=== PATIENT | female | born 1985 | race Caucasian/White ===

== ENCOUNTER → 2022-05-18 | Outpatient (CLI) | payer MEDICAID, SELFPAY ==
[2022-05-18 16:23] LABS: Absolute Neutrophil Count 3.6 X10^3/uL (2.0-7.7); Basophil# 0.02 X10^3/uL; Basophil% 0.3 % (0-1); Eosinophil# 0.29 X10^3/uL; Eosinophils% 4.6 % (0-5); Hematocrit 40.4 % (37-47); Hemoglobin 13.2 g/dL (12.0-15.0); Lymphocyte % 26.9 % (19-41); Mean Corp Hgb Conc 32.7 g/dL (32-36); Mean Corpuscular Hgb 32.1 pg (27.0-32.0); Mean Corpuscular Volume 98.3 fL (81-99); Mean Platelet Vol. 10.7 fl (6.2-12.0); Monocyte% 11.1 % (0-10); NRBC Flagged by Analyzer 0 % (0-5); Neutrophil % 56.8 % (47-70); Platelet Count 283 K/mm3 (150-450); RBC Distribution Width CV 11.9 % (11.6-14.6); RBC Distribution Width SD 43.5 fl (35.1-43.9); Red Blood Count 4.11 M/mm3 (4.2-5.4); White Blood Count 6.3 K/mm3 (4.4-11.0)
[2022-05-18 16:37] LABS: ALB/GLOB Ratio 1.1 RATIO (0.9-2.4); AST(SGOT) 15 U/L (15-37); Alanine Aminotransfer ALT/SGPT 24 U/L (13-56); Albumin, Serum 3.9 g/dL (3.2-5.0); Alkaline Phosphatase 45 U/L (45-117); Anion Gap 6 (5-15); BUN 16 mg/dL (7-18); BUN/Creat Ratio 17.8 RATIO (10-20); Calcium,Total 9.6 mg/dL (8.5-10.1); Chloride 103 mmol/L (98-107); Cholesterol 183 mg/dL (200); EST Glomerular Filtration Rate 75 mL/min (>60); Est Glom Filt Rate - Afr Amer 90 mL/min (>60); Globulin 3.6 g/dL (2.2-4.2); Glucose 147 mg/dL (74-106); High Density Lipoprotein 49 mg/dL; Potassium 4.2 mmol/L (3.5-5.1); Protein, Total 7.5 g/dL (6.4-8.2); Sodium Level 139 mmol/L (136-145); Triglycerides 82 mg/dL; Very Low Density Lipoprotein 16 mg/dL (5-40)
[2022-05-22 08:59] LABS: Hemoglobin A1c 5.4 % (3.8-5.6)
== END | disposition home or self-care (01) ==
LOC: BIMLAB 15:16
PROVIDERS: PCP Internal Medicine; Referring Provider Internal Medicine; Visit Provider Internal Medicine
DX: I10 Essential (primary) hypertension (principal); R73.09 Other abnormal glucose
CPT/HCPCS: 36415; 80053; 80061; 83036; 85025

== ENCOUNTER 2023-01-02 14:00 | Outpatient (RCR) | payer MEDICAID, SELFPAY ==
--- NOTE | 2022-12-05 13:44 | HP.PTEVAL_ITS ---
Patient's Visit Information DARLENE HELMS I is a 37 year old F referred to Physical Therapy by JOVITA SYKES with a diagnosis of TOS. Date of Evaluation: 12/05/22 Physical Therapist: Major Saavedra, DPT, OCS, CSCS - Visit Plan Frequency: 2x /Week Duration: 4-6 Weeks Plan: 2x/week for 4-6 weeks to start for... 1. monitor and progress one at a time HEP(given median nerve stretch today) and montior cause and effect relationship. Progress to UT and scalene stretch R, Pec stretching R, SCM stretches over next three visits. 2. Please focus treatment on DTR adn STM to R upper quarter specifically R SCM, pec minor, scalenes, and UT area). 3. cervical and thoracic spinal PA mobs. 4. PROM neck m,anual. Postural emphasis. 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 Pain is spasms in R traps and scalenes and lev scap and occipital region. had it 14 yrs and not sure why but has a 13 yo. it is not always daily. Might have a spasm a day and take alleve. but other days 8/10 multiple times per day. Does nto see a pattern to it over the 14 yrs. it is worse on day one of menstrual cycle. Possibly due to inflammation. Posture effects it because she sees small improvements when she is very consci ous of posture. Has to lie down on floor with bad spasms and try to give it some pressure. Sleep is interrupted in that it wakes her up at night if it happens in pm, currently wakes up every two hours since last weekend. Some nights are OK all night. 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 No regular exercises. Had surgery December 01, 2021 pec minor release and TOS adn first rib removal. it helped for 6 weeks after surgery. Came back mild. Since July it has been far worse. May have scalenectomy but wants PT first. May have scalene block. They have taken away her pain in past. Denies arm symptoms ever. Has not had therapy for TOS syndrome. Has had neck therapy but never [id number] discs) - Pain R neck Pain Intensity (Out of 10): 2 Pain Intensity Range: 0, 8 - Objective walks into therapy I without gait deviations. [facility] table I. Good balance. Lumbar spine ROM is full and painfree. Thoracic rotation is symmetrical B. cervical aROM ext 75 and SB are 25 adn rotation is 65 R and 80 L, some stretching ipsilaterally with R rotation. UE AROM WFL B without asymmetries. Strength B UE 4-/5 without myotomal abnormalities. reflex 2/3 patella adn achilles. Sensation UE WNL to gross light touch. Scapular AROM diminished R side in depression with retraction. Tender slightly over pec incision R and armpit incision R from previous surgery but no obvious palpable scarring. Tightness present in R SCM, lev scap, scalenes and pec minor. Obvious stringy scarring scalenes and SCM R side palpable vs L. Nerves UE seem patent outside of median nerve stretch which is obviously more tight R vs L. - c/s compression test. Posture is slightly forward head and slight protraction in scap but not terrible. - Balance/Special Test Scores Oswestry Neck Score: 20 - Goals Goal 1:: Patient sapsms decrease to 1-2x/week adn 2/10 at worst Goal Time Frame: 4-6 Weeks Goal 2:: Pt I in appropriate HEP of stretches and soft tissue to minimze future problem Goal Time Frame: 4-6 Weeks Goal 3:: Oswestry neck 8 or less Goal Time Frame: 4-6 Weeks Goal 4:: Sleep without waking at night due to pain Goal Time Frame: 4-6 Weeks - Rehabilitation Potential Physical Therapy Diagnosis: possible TOS with scalene involvement Rehabilitation Potential: Questionable - Anticipated Interventions Patient/Client Instruction: Educate patient on: Condition, Plan of Care For the Purpose of:: To decrease pain, To increase ROM, To improve muscle performance and motor function, To increase tolerance to activity/condition/position, To improve ability of physical actions for home/community/work/leisure Therapeutic Exercise to Include: Postural training, Flexibilty training, Passive ROM, Active ROM For the Purpose of:: To decrease pain, To increase ROM, To improve nutrient delivery to tissue, To improve muscle performance and motor function, To increase tolerance to activity/condition/position Manual Therapy Techniques to Include: Scar massage, Mobilization, Soft tissue mobilization For the Purpose of:: To decrease pain, To increase ROM, To improve nutrient delivery to tissue, To improve muscle performance and motor function, To increase tolerance to activity/condition/position Thermo therapy (hot pack): Yes For the Purpose of:: To decrease pain, To decrease swelling/inflammation Thank you for the opportunity to evaluate your patient. For Medicare and Medicare HMO plans, please review the plan of care and approve it. It will need to be FAXED BACK to us at [phone] for Medicare purposes. For Medicare only, by signing this I certify the plan of care. Please let me know if there are questions or concerns regarding this plan of care. Physician Signature: Date:
--- NOTE | 2023-01-02 14:57 | HP.PTREVAL ---
JOVITA SYKES, It has been my pleasure to treat DARLENE HELMS over the last 9 visits for TOS. Please see the progress note below for an update on the physical therapy plan of care! Subjective: Pain is up and down for no apparent reason. Pain is still up to 9/10 in r neck and scalenes.Had one week of improvement but pain came back for no apparent reason. Doing 4 different stretches daily at home and not helping or hurting, they feel good but do not help frequency of spasms, may help when she gets them. Had consultation for injection of scalenes. Injection will be February 07 but insurance had not improve it. Will seek steroids from Dr. sykes. Had catscan to see what anatomy is in the way. No results yet. Objective/Function: Neck ROM ext 50 but painful centrally, hurts more with retraction first but transient.. UE AROM WFL. rod mill tender R scalenes. Overall sapsms not improving and wishes to try dry needling. To this therapist, disc derangement cannot be ruled out. Goals still appropriate with new POC. Questionable prognosis with her history. Plan Plan: 1-2x/week with Lit for DN as appropriate to r neck/scalenes, this along with caontinued manual to R neck . ALSO please monitor response to cervical ret/ext andreea exercises for discal pathology and progression of forces as appropriate(may use PA cervical mobs and retracction adn extension with OP as helpful. Balance/Gait/Functional tests - Balance/Special Test Scores Oswestry Neck Score: 31 Goals Goal 1:: Patient sapsms decrease to 1-2x/week adn 2/10 at worst Goal Time Frame: 4-6 Weeks Goal Progress: Not Progressing, approp Goal 2:: Pt I in appropriate HEP of stretches and soft tissue to minimze future problem Goal Time Frame: 4-6 Weeks Goal Progress: Progressing Goal 3:: Oswestry neck 8 or less Goal Time Frame: 4-6 Weeks Goal Progress: Progressing Goal 4:: Sleep without waking at night due to pain Goal Time Frame: 4-6 Weeks Goal Progress: Not Progressing, approp Anticipated Interventions Patient/Client Instruction: Educate patient on: Condition, Plan of Care For the Purpose of:: To decrease pain, To increase ROM, To improve muscle performance and motor function, To increase tolerance to activity/condition/position, To improve ability of physical actions for home/community/work/leisure Therapeutic Exercise to Include: Postural training, Flexibilty training, Passive ROM, Active ROM Comment: dry needle For the Purpose of:: To decrease pain, To increase ROM, To improve nutrient delivery to tissue, To improve muscle performance and motor function, To increase tolerance to activity/condition/position Manual Therapy Techniques to Include: Scar massage, Mobilization, Soft tissue mobilization For the Purpose of:: To decrease pain, To increase ROM, To improve nutrient delivery to tissue, To improve muscle performance and motor function, To increase tolerance to activity/condition/position Thermo therapy (hot pack): Yes For the Purpose of:: To decrease pain, To decrease swelling/inflammation Please do not hesitate to contact me at [phone] by phone or if you have questions or concerns regarding this new plan of care! Sincerely, Major Saavedra, DPT, OCS, CSCS
--- NOTE | 2023-02-22 14:16 | HP.PT.NRP ---
Patient Information Patient Information: DARLENE HELMS was seen in my office for initial evaluation on 12/05/22. The following Plan of Care was established for this patient: POC Established Initial Frequency: 2x /Week Initial Duration: 4-6 Weeks Anticipated Interventions Patient/Client Instruction: Educate patient on: Condition and Plan of Care For the Purpose of:: To decrease pain, To increase ROM, To improve muscle performance and motor function, To increase tolerance to activity/condition/position and To improve ability of physical actions for home/community/work/leisure Therapeutic Exercise to Include: Postural training, Flexibilty training, Passive ROM and Active ROM For the Purpose of:: To decrease pain, To increase ROM, To improve nutrient delivery to tissue, To improve muscle performance and motor function and To increase tolerance to activity/condition/position Manual Therapy Techniques to Include: Scar massage, Mobilization and Soft tissue mobilization For the Purpose of:: To decrease pain, To increase ROM, To improve nutrient delivery to tissue, To improve muscle performance and motor function and To increase tolerance to activity/condition/position Thermo therapy (hot pack): Yes For the Purpose of:: To decrease pain and To decrease swelling/inflammation Last Seen Last Seen: This patient was last seen in our office 01/02/23. Pertinent comments regarding their Physical therapy will appear below: Pt seen 9 visits of POC but was not improving, POC was extended for DN attempt but she did not attend any further visits. At this point, it has been over 6 weeks and I will discontinue due to nonattendance. At this point I will be discontinuing this patient from physical therapy. I would be happy to see this patient again in the future if found appropriate by the physician. Thank you! Major Saavedra, DPT, OCS, CSCS Balance/Gait/Functional tests Balance/Special Test Scores Oswestry Neck Score: 31
== END 2023-01-02 19:00 | disposition home or self-care (01) ==
LOC: PT 14:00
PROVIDERS: PCP Internal Medicine
DX: G54.0 Brachial plexus disorders (principal)
CPT/HCPCS: 97110; 97140; 97162; 97164

== ENCOUNTER → 2023-08-22 | Outpatient (CLI) | payer MEDICAID, SELFPAY ==
--- OUTSIDE RECORDS SUMMARY | 2023-08-22 13:43 | XMS RPT_ITS | CCD ---
Author Name Unknown Address [address] [facility] [address] [place] [address] Organization [facility] Care Team Providers Care Circulation Crew Leader Name Role Phone FRED SALTER MD Primary Care Physician (10 11) Unavailable Primary Care Provider Unavailabl Fred Jon MD Primary Care Provider 1(10 [phone]) Fred Salter MD Primary Care Provider 1(10 11) FRED SALTER MD Primary Care Unavailab LILLIE Naylor MD Attending U SAMANTHA Pinedo DO Attending Unavailab FRED Abebe MD Primary Care Unavailab EDUARDO Hawley DO Attending Unavailable FRED SALTER MD Primary Care Unavailab FRED Abebe MD Primary Care Unavailab LILLIE Naylor MD Attending U REMI Suazo MD Attending Unavailable FRED SALTER MD Primary Care Unavailab le ELIAS GONZALEZ Attending Unavailable COSTANDI, SHRIF Admitting Unavailable OLEGHE, EFEWONGBE B Primary Care Unavailable COSTANDI SHRIF Attending Unavailable STEPHYNDI, SHRIF Admitting Unavailable OLEGHE, EFEWONGBE B Primary Care Unavailable OLEGHE, EFEWONGBE B Primary Care Unavailable OLEGHE, EFEWONGBE B Primary Care Unavailable RAMON SYKES Referring Unavailable RADHAI, SHRIF Referring Unavailable LISA, SHRIF Attending Unavailable RAMON SYKES Attending Unavailable OLEGHE, EFEWONGBE B Primary Care Unavailable BEATRIZ POWERS Referring Unavailable BEATRIZ POWERS Attending Unavailable OLEGHE, EFEWONGBE B Referring Unavailable FRED SALTER Primary Care Unavailable RAMON SYKES Attending Unavailable Allergies Allergy Classification Reported Allergen(s) Allergy Type Date of Onset Reaction(s) Facility (3 sources) cyclobenzaprine; Translations: [CYCLOBENZAPRINE HCL] Drug Allergy 03-14-2007 [place] Work Phone: Medications Current Medications Medication Drug Class(es) Dates Sig (Normalized) Sig (Original) cyclobenzaprine hydrochloride 10 mg oral tablet (11 sources) Muscle Relaxant Start: 06-10-2023 cyclobenzaprine 10 mg oral tablet Dose : 10 mg = 1 tab(s), Oral, 0 Refill(s) Start Date: 06/10/23 Status: Ordered Completed/Discontinued Medications Medication Drug Class(es) Dates Sig (Normalized) Sig (Original) acetaminophen 325 mg oral capsule (9 sources) acetaminophen 32 5 mg cap Take by mouth. 0 Active Problems Active Problems Problem Classification Problem Date Documented Da te Episodic/Chronic Cardiac dysrhythmias (3 sources) Palpitations; Translations: [Palpitations] Onset: 06-09-2023 Episodic Essential hypertension (1 source) Hypertensive disorder 07-01-2023 Chronic Malaise and fatigue (1 source) Fatigue; Translations: [Other fatigue] Episodic Menstrual disorders (11 sources) Irregular periods; Translations: [Irregular menstruation, unspecified] Onset: 08-17-2009 08-17-2009 Chronic Nonspecific chest pain (1 source) Atypical chest pain 07-01-2023 Episodic Nutritional deficiencies (1 source) Vitamin D deficiency; Translations: [Vitamin D deficiency, unspecified] Chronic Other congenital anomalies (11 sources) Spina bifida occulta; Translations: [Spina bifida occulta] Onset: 07-22-2012 07-10-2021 Chronic Other endocrine disorders (1 source) Disorder of endocrine ovary; 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 Other endocrine disorders (11 sources) Polycystic ovary syndrome; Translations: [Polycystic ovarian syndrome] Onset: 08-17-2009 08-17-2009 Chronic Other hereditary and degenerative nervous system conditions (1 source) Isolated cervical dystonia; 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-24-2023 Chronic Other hereditary and degenerative nervous system conditions (1 source) Spasmodic torticollis; 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] Onset: 07-18-2023 Chronic Other lower respiratory disease (2 sources) Dyspnea on exertion 06-11-2023 Episodic Other nervous system disorders (11 sources) Thoracic outlet syndrome; Translations: [Brachial plexus disorders] Onset: 02-07-2023 Chronic Other nervous system disorders (2 sources) Brachial plexus disorders; Translations: [TOS (thoracic outlet syndrome)] Onset: 12-27-2022 Chronic Other nervous system disorders (1 source) Other chronic pain; Translations: [Chronic right shoulder pain] Onset: 02-07-2023 Chronic Other nutritional; endocrine; and metabolic disorders (1 source) Obesity 07-01-2023 Chronic Past or Other Problems Problem Classification Problem Date Documented Da te Episodic/Chronic Allergic reactions (1 source) Allergic reaction Onset: 12-27-2022 Episodic Diabetes or abnormal glucose tolerance complicating ; childbirth; or the puerperium (11 sources) Gestational diabetes mellitus; Translations: [Gestational diabetes mellitus in , unspecified control] Onset: 12-25-2012 12-25-2012 Episodic Other complications of (11 sources) History of gestational diabetes mellitus; Translations: [Supervision of with other poor reproductive or obstetric history, unspecified trimester] Onset: 07-22-2012 07-10-2021 Episodic Other connective tissue disease (5 sources) Myofascial pain; Translations: [Myalgia, other site] Onset: 02-07-2023 01-11-2023 Episodic Other connective tissue disease (1 source) Myalgia, other site; Translations: [Myofascial pain] Onset: 02-07-2023 Episodic Other infections; including parasitic (11 sources) History of sexually transmitted disease; Translations: [Personal history of other infectious and parasitic diseases] Onset: 07-22-2012 07-10-2021 Episodic Other non-traumatic joint disorders (3 sources) Chronic pain of right upper limb; Translations: [Pain in right shoulder] Onset: 02-07-2023 02-07-2023 Episodic Other non-traumatic joint disorders (1 source) Pain in right shoulder; Translations: [Chronic right shoulder pain] Onset: 02-07-2023 Episodic Other and delivery including normal (11 sources) Normal ; Translations: [Encounter for supervision of other normal , unspecified trimester] Onset: 08-11-2012 07-10-2021 Episodic Spondylosis; intervertebral disc disorders; other back problems (4 sources) Neck pain; Translations: [Cervicalgia] Onset: 02-07-2023 02-07-2023 Episodic Results Test Name Value Interpretation Reference Range Facil ity Vital Signs Date Time Vital Sign Value Performing Clinician Facility 06-09-2023 17:17-0500 Diastolic Blood Pressure Non-Invasive 87 mm[Hg] EDUARDO REICHFIELD DO [facility] 06-09-2023 17:17-0500 Heart rate 105 /min EDUARDO REICHFIELD DO [facility] 06-09-2023 17:17-0500 Respiratory rate 20 /min EDUARDO REICHFIELD DO [facility] 06-09-2023 17:17-0500 Systolic Blood Pressure Non-Invasive 126 mm[Hg] EDUARDO REICHFIELD DO [facility] 06-09-2023 16:45-0500 Diastolic Blood Pressure Non-Invasive 87 mm[Hg] EDUARDO REICHFIELD DO [facility] 06-09-2023 16:45-0500 Heart rate 92 /min EDUARDO REICHFIELD DO [facility] 06-09-2023 16:45-0500 Respiratory rate 19 /min EDUARDO REICHFIELD DO [facility] 06-09-2023 16:45-0500 Systolic Blood Pressure Non-Invasive 130 mm[Hg] EDUARDO REICHFIELD DO [facility] 06-09-2023 15:30-0500 Diastolic Blood Pressure Non-Invasive 92 mm[Hg] EDUARDO REICHFIELD DO [facility] 06-09-2023 15:30-0500 Heart rate 92 /min EDUARDO REICHFIELD DO [facility] 06-09-2023 15:30-0500 Respiratory rate 14 /min EDUARDO REICHFIELD DO [facility] 06-09-2023 15:30-0500 Systolic Blood Pressure Non-Invasive 132 mm[Hg] EDUARDO REICHFIELD DO [facility] 06-09-2023 13:47-0500 Body temperature 99.14 [degF] EDUARDO REICHFIELD DO [facility] 06-09-2023 13:47-0500 Body weight 75.4 kg [facility] 02-13-2023 11:38-0400 Diastolic blood pressure 76 mm[Hg] Ramon Sykes MD Work Phone: [facility] 02-13-2023 11:38-0400 Heart rate 80 /min Ramon Sykes MD Work Phone: [facility] 02-13-2023 11:38-0400 Systolic blood pressure 122 mm[Hg] Ramon Sykes MD Work Phone: [facility] 11-14-2022 09:37-0400 Diastolic blood pressure 84 mm[Hg] Ramon Sykes MD Work Phone: [place] 11-14-2022 09:37-0400 Heart rate 83 /min Ramon Sykes MD Work Phone: [place] 11-14-2022 09:37-0400 Systolic blood pressure 126 mm[Hg] Ramon Sykes MD Work Phone: [facility] 11-14-2022 09:35-0400 Body height 157.5 cm Ramon Sykes MD Work Phone: [facility] 11-14-2022 09:35-0400 Body weight 66.22 kg Ramon Sykes MD Work Phone: [facility] 11-14-2022 09:35-0400 Respiratory rate 17 /min Ramon Sykes MD Work Phone: [facility] 11-14-2022 09:35-0400 SaO2% (BldA) [Mass fraction] 99 % Ramon Sykes MD Work Phone: [place] Encounters Encounter Date Encounter Type Care Provider Facility Start: 08-20-2023 Telephone encounter Fred Salter MD Work Phone: NOC Procedures Date Procedure Procedure Detail Performing Clinician Start: 12-27-2022 Creatinine [Mass/vol ume] in Serum or Plasma [facility] Provider Start: 07-15-2021 Bone structure of ri b (body structure) REMI VILLAR MD Plan of Treatment Date Care Activity Detail Author Start: 06-30-2026 Screening for malignant neoplasm of cervix [facility] Start: 07-15-2023 Depression Assessment Depression Assessment [facility] Start: 03-15-2023 Influenza vaccination [facility] Start: 07-15-2022 DEPRESSION ASSESSMENT DEPRESSION ASSESSMENT [facility] Start: 08-11-2017 PAP TESTING PAP TESTING [facility] Start: 2014 HPV TESTING HPV TESTING [facility] Start: 2003 Urine microalbumin profile [facility] Start: 2002 HEPATITIS C SCREENING HEPATITIS C SCREENING [facility] Start: 2002 Hepatitis C screening Hepatitis C Screening [facility] Start: 2002 HIV SCREENING HIV SCREENING [facility] Start: 2002 HIV screening HIV Screening [facility] Start: 01-26-1985 COVID-19 VACCINE (#1) COVID-19 VACCINE (#1) [facility] Start: 1984 HEPATITIS B (1 of 3 - 3-dose series) HEPATITIS B (1 of 3 - 3-dose series) [facility] Start: 1984 Hepatitis B Vaccine (1 of 3 - 3-dose series) Hepatitis B Vaccine (1 of 3 - 3-dose series) [facility] End: 12-15-2023 Ct angiography chest w/contrast/noncontrast CTA CHEST (NONGATED) W IVCON Radiology Routine Thoracic outlet syndrome 1 Occurrences starting 11/15/2022 until 12/15/2023 [facility] Work Phone: Payers Date Payer Category Payer Medicaid [id number] 2022 Unknown [id number] 1984 Unknown [id number] 1984 Unknown [id number] 1984 Unknown [id number] [id number] 1984 Unknown [id number] 1984 Unknown [id number] Social History Date Type Detail Facility Tobacco smoking status [facility] Sex Assigned At Female [facility] Start: 12-07-2010 End: 12-20-2022 Tobacco smoking status NHIS Ex-smoker [place] Work Phone: End: 12-01-2006 History of tobacco use Current smoker [place] Work Phone: End: 12-01-2006 History of tobacco use Cigarette Smoker [facility] Work Phone: Start: 12-07-2010 End: 11-14-2022 Cigarettes smoked current (pack per day) - Reported 0.3 [facility] Start: 12-07-2010 End: 12-20-2022 Tobacco use and exposure Smokeless tobacco non-user [facility] Work Phone: Start: 02-28-2022 End: 08-07-2023 Alcohol intake Current non-drinker of alcohol (finding) [facility] Start: 1985 Sex Assigned At Not on file [facility] Start: 11-14-2022 End: 12-20-2022 Tobacco use panel [facility] National Score (1-10 0), lower number is lower risk 60 [facility] Start: 06-09-2023 End: 06-10-2023 Tobacco smoking status Never smoked tobacco (finding) [facility] Medical Equipment Procedure Code Equipment Code Equipment Origin al Text Equipment Identifier Dates Start: 12-25-2012 Functional Status Date Assessment Result Facility 06-09-2023 Functional Status [facility] 06-09-2023 Functional Status Repositions self [facility] Mental Status Date Assessment Result Facility 06-09-2023 Mental Status Orientation Oriented x 4 [facility] 06-09-2023 Mental Status [facility] Clinical Notes 11-16-2009 to 08-20-2023 Telephone Encounter - Radha Alvarado - 08/20/2023 4:27 PM EST Note Date & Type Note Facility 08-20-2023 Miscellaneous Notes Formattin g of this note might be different from the original. Reason for call: Ms. Helms would like to schedule a f/u appointment with Dr. Sykes. Home and cell number [phone] Diagnosis TOS (thoracic outlet syndrome) Radha Howard documented in this encounter [facility] 11-26-2023 Hospital Discharge instructions Patient Education 06/09/2023 16:57:36 Palpitations Heart Palpitations Palpitations are the feeling that your heart is beating hard, fast, or irregular. Some describe it as pounding or skipped beats. Palpitations may occur in someone with heart disease, but can alsooccur in a healthy person. Heart-related causes: Arrhythmia (a change from the heart's normal rhythm) Heart valve disease Disease of the heart muscle Coronary artery disease High blood pressure Ehw-ucsvr-qgwjsdg causes: Certain medicines such as asthma inhalers and decongestants Some herbal supplements, energy drinks and pills, and weight loss pills Illegal stimulant drugs such as cocaine, crank, methamphetamine, PCP, bath salts, or ecstasy Caffeine, alcohol, and tobacco Medical conditions such as thyroid disease, anemia, anxiety, and panic disorder Sometimes the cause can't be found. Home care Follow these home care tips: Don't use too much caffeine, alcohol, tobacco, or any stimulant drugs. Tell your doctor about any prescription or eijw-leh-cjgpiby or herbal medicines you take. Follow-up care Follow up with your doctor, or as advised. Call 911 This is the fastest and safest way to get to the emergency department. The paramedics can also begin treatment on the way to the hospital, if needed. Don't wait until your symptoms are severe to call 911. These are reasons to call 911: Chest pain Shortness of breath Feeling lightheaded, faint, or dizzy Fainting or loss of consciousness Very irregular heartbeat Rapid heartbeat that makes you uncomfortable Slower than usual heart rate associated with symptoms Slower than usual heart rate Chest pain with weakness, dizziness, heavy sweating, nausea, or vomiting Extreme drowsiness or confusion Weakness of an arm or leg, or on 1 side of the face Difficulty with speech or vision When to seek medical advice Call your healthcare provider right away if you have palpitations and any of the following: Weakness Dizziness Lightheadedness Fainting [phone] [employer] [place] [address]. All rights reserved. This information is not intended as a substitute for professional medical care. Always follow yourhealthcare professional's instructions. Follow Up Care 06/09/2023 13:40:34 With:VICKIE ROGERS MD Address: [address] [facility] [place] [address]- [phone] When:1-2 days [facility] 11-26-2023 Note Discharge Instructions Thank you for allowing [facility] to assist you with your healthcare needs. The following is importantdischarge information regarding your hospital visit. Diagnosis from Today's Visit Chest pain Palpitations Shortness of breath What to Do Next Instructions from Your Care Team Contact cardiovascular consultants at tomorrow morning to schedule next day follow up appointment. No qualifying data available. Post Acute Orders No qualifying data available. You Need to Schedule the Following Appointments Follow Up with VICKIE ROGERS MD When Within 1-2 days Where: [address] [facility] [place] [address]- [phone] Allergies NKA Medications Please ask your primary doctor or pharmacist before taking any other medication not listed, including over the counter drugs, herbal medications, vitamins and or supplements as they may interact withyour home medications. Please take this list to your next doctor s visit. Bring all medications you take, including over the counter medications, herbals and other supplements with you to your doctor s visit. Patients and families are reminded to discard old lists and to update any records with all medication providers or retail pharmacies. Education Materials Heart Palpitations Palpitations are the feeling that your heart is beating hard, fast, or irregular. Some describe it as pounding or skipped beats. Palpitations may occur in someone with heart disease, but can alsooccur in a healthy person. Heart-related causes: Arrhythmia (a change from the heart's normal rhythm) Heart valve disease Disease of the heart muscle Coronary artery disease High blood pressure Gun-dqfmm-knpgnmx causes: Certain medicines such as asthma inhalers and decongestants Some herbal supplements, energy drinks and pills, and weight loss pills Illegal stimulant drugs such as cocaine, crank, methamphetamine, PCP, bath salts, or ecstasy Caffeine, alcohol, and tobacco Medical conditions such as thyroid disease, anemia, anxiety, and panic disorder Sometimes the cause can't be found. Home care Follow these home care tips: Don't use too much caffeine, alcohol, tobacco, or any stimulant drugs. Tell your doctor about any prescription or njox-jhn-dlqfcyc or herbal medicines you take. Follow-up care Follow up with your doctor, or as advised. Call 911 This is the fastest and safest way to get to the emergency department. The paramedics can also begin treatment on the way to the hospital, if needed. Don't wait until your symptoms are severe to call 911. These are reasons to call 911: Chest pain Shortness of breath Feeling lightheaded, faint, or dizzy Fainting or loss of consciousness Very irregular heartbeat Rapid heartbeat that makes you uncomfortable Slower than usual heart rate associated with symptoms Slower than usual heart rate Chest pain with weakness, dizziness, heavy sweating, nausea, or vomiting Extreme drowsiness or confusion Weakness of an arm or leg, or on 1 side of the face Difficulty with speech or vision When to seek medical advice Call your healthcare provider right away if you have palpitations and any of the following: Weakness Dizziness Lightheadedness Fainting [phone] [employer]. [address] [place] [address], [place] [address]. All rights reserved. This information is not intended as a substitute for professional medical care. Always follow yourhealthcare professional's instructions. Additional Information VACCINATE! IT SAVES LIVES! Members of the community who have not yet received the COVID-19 vaccine and would like to receive it can visit one of [facility] vaccine clinics. There are many vaccine clinic locations within the [facility]. For locations and available times, please visit www.[email or web address]/. It is important to note that some COVID mobile vaccine clinics are held outdoors and may be canceled in rainy or stormy conditions. To learn more about pediatric vaccinations (ages 5-11), we invite you to visit the [employer] [facility] webpage. [email or web address]/[email or web address] [email or web address] learn more about the COVID-19 vaccine, we invite you to visit the CDC website for a list of frequently asked questions. https://www.cdc.gov/coronavirus/2019-ncov/vaccines/faq.html [facility] Patient Portal Access Instructions: Stay connected with your healthcare team and access your personal medical information anytime with the [facility] Patient Portal. If you would like a full copy of your medical records please contact the [facility] Medical Records Department Saturday through Saturday between 8a.m. and 4:30p.m. Please follow the directions below to access the portal: 1.Access the email account you provided upon registration to the hospital.2.Look for an invitation email from [facility].3.Open the email and access the invitation link: Accept Invitation to [facility]4.Fill in the required fenton to create your account. Sign into [email or web address] with your username and password that you created in the above steps to stay up to date. You can then view a summary of results, a summary of your visits, and the ability to download your summaries to your computer or send the information securely to a physician. Remember that your healthcare information is confidential, so carefully consider who you will allow to register on the [email or web address] Patient Portal for access to your information. You can also access the [email or web address] Patient Portal on the [employer]. Simply click on Health Records under [employer] and then click on the [email or web address] logo. HOW TO SAFELY DISPOSE OF PRESCRIPTION MEDICATIONS Please use one of the following methods to safely dispose of your unused medications. 1.Use a drug disposal kit: the drug disposal pouch allows you to safely discard your old and unuseddrugs. Ask your nurse to give you one when you are discharged.2.Visit a local take-back location: Many local pharmacies and police departments have programs that collect old and unwanted prescriptiondrugs. Call your local pharmacy or go to http://TalentClick.iHookup Social/1K8Zp9o to find one close to you.3.Make use of household items: Use cat litter or old coffee grounds to dispose medications if other options arenot available. Mix your drugs with these household products, seal them in an airtight container andthrow it into the garbage. Call [facility]: [phone] to be sure your drugs can be disposed of in this way. Some medicines may require a different approach.4.Never flush your medications down the toilet. IF YOU HAVE BEEN PRESCRIBED AN OPIOIDS FOR PAIN If you have been prescribed an opioid (such as hydrocodone, oxycodone or morphine), it is critical to understand the possible side effects and risks of opioid pain medications. Even when taken as directed, opioids can have several side effects including: Tolerance, meaning you might need to take more of a medication for the same pain relief. Nausea, vomiting and/or constipation. Sleepiness, dizziness, dry mouth, confusion, depression or itching. Physical dependence, meaning you have withdrawal symptoms when a medication is stopped ? this can develop within a few days. KNOW YOUR RESPONSIBILITIES It is important to know exactly how much and how often to take the opioid pain medications you are prescribed. Never take opioids in higher amounts or more often than prescribed. Do not combine opioids with alcohol or other drugs that cause drowsiness, such as benzodiazepines, also known as benzos,including diazepam and alprazolam, muscle relaxants or sleep aids. Never sell or share prescriptionopioids. This is illegal. Store opioids in a secure place and out of reach of others (including children, family, friends and visitors). The last page(s) of this document has been signed and retained as a CHART COPY Signatures Patient Education Materials Palpitations Medication Leaflets My discharge plan and instructions have been reviewed and explained to me and I,GRIFFIN HELMS understand my current condition and have read and understand these discharge instructions. I havereceived a written copy of the plan/instructions. If I have questions, I am aware that I should contact my doctor. Patient/Supervisor [place] Signature: Date/Time: Relationship to Patient: Witness Name/Signature: Date/Time: [facility]11-26-2023 Note ORIGINAL EXAMINATION: CTA OF THE CHEST 06/09/2023 4:18 pm TECHNIQUE: CTA of the chest was performed after the administration of intravenous contrast. Multiplanar reformatted images are provided for review. MIP images are provided for review. Automated exposure control, iterative reconstruction, and/or weight based adjustment of the mA/kV was utilized to reduce the radiation dose to as low as reasonably achievable. COMPARISON: 06/09/2023 HISTORY: ORDERING SYSTEM PROVIDED HISTORY: Reason for Exam: chest pain elevated dimer FINDINGS: Pulmonary Arteries: Pulmonary arteries are suboptimally opacified for evaluation. Within these confines no evidence of a large or central intraluminal filling defect to suggest pulmonary embolism. Main pulmonary artery is normal in caliber. Mediastinum: No evidence of mediastinal lymphadenopathy. The heart and pericardium demonstrate no acute abnormality. There is no acute abnormality of the thoracic aorta. Lungs/pleura: The lungs are without acute process. No focal consolidation or pulmonary edema. No evidence of pleural effusion or pneumothorax. Upper Abdomen: Limited images of the upper abdomen are unremarkable. Soft Tissues/Bones: Degenerative changes are noted in the spine. No focal soft tissue abnormality is identified. IMPRESSION: 1. No evidence of large or central pulmonary embolism, within the confines of suboptimal contrast opacification. 2. No acute pulmonary abnormality. Interpreted by: Robert Galdamez Preliminary Report By: Robert Galdamez Electronically signed By Robert Galdamez Dictated Date: 06/09/2023 4:32:12 PM Prelim Date: 06/09/2023 4:36:53 PM Sign Date: 06/09/2023 4:36:53 PM [facility]ing [facility] Note ORIGINAL EXAMINATION: ONE XRAY VIEW OF THE CHEST TECHNIQUE: AP upright COMPARISON: None HISTORY: ORDERING SYSTEM PROVIDED HISTORY: Reason for Exam: chest pain FINDINGS: Support devices: None Cardiomediastinal: The heart size is normal peer Lungs: The lungs are clear. Pneumothorax: None Osseous: No acute osseous pathology. IMPRESSION: Unremarkable examination. Interpreted by: Jason Cason MD Preliminary Report By: Jason Cason MD Electronically signed By Jason Cason MD Dictated Date: 06/09/2023 3:19:54 PM Prelim Date: 06/09/2023 3:20:29 PM Sign Date: 06/09/2023 3:20:29 PM Ordering Provider: [facility]23 NoteSinus rhythm Ventricular premature complex Borderline left axis deviation Electronic Signature: RENZO EDUARDO DO 06/09/2023 13:58:59[facility] Miscellaneous Notes* Addendum Note - Beatriz Powers APRN.CNP - 05/24/2023 1:34 PM ESTAddended by: BEATRIZ POWERS on: 05/24/2023 01:34 PM Modules accepted: Orders * Telephone Encounter - Beatriz Powers APRN.CNP - 05/24/2023 10:15 AM EST Order placed for repeat injection. Schedule once Dr. Gonzalez gives the okay to proceed. * Telephone Encounter - Sameera Ponce RN - 05/24/2023 10:10 AM EST Patient states she had 75% pain relief that lasted until mid April. Pain has returned and has been increasing since. Patient would like to have repeat of same procedure. Sameera Ponce RN * Telephone Encounter - Matilda Mary RN - 05/24/2023 9:53 AM EST Patient called to f/u on TPI. Patient states she was to have repeat injections. Matilda Mary RN Returned call to patient to f/u pain, no answer. Message left to return call. Matilda Mary RN documented in this encounterCenterville08-02-2023 NoteHNO ID: [id number] Author: Ramon Sykes MD Service: ? Author Type: Physician Type: Progress Notes Filed: 02/13/2023 4:26 PM Note Text: [facility] [place] DEPARTMENT OF VASCULAR SURGERY OUTPATIENT VISIT DATE February 13, 2023 OUTPATIENT VISIT TYPE ESTABLISHED SERVICE DATE: 02/13/2023 SERVICE TIME: 4:24 PM PRIMARY CARE PHYSICIAN: Fred Salter MD HISTORY OF PRESENT ILLNESS: Ms. Helms is a 37 year old female who presents today for a vascular surgery follow-up visit of right first rib resection from [facility]. Doing ok. Much improved after injection. PAST MEDICAL HISTORY Diagnosis Date Diabetes mellitus of mother, complicating , childbirth, or the puerperium, unspecified as to episode of care(648.00) Gestational diabetes Diabetes, gestational Genital herpes 2003 PCOS (polycystic ovarian syndrome) PMH - PAST MEDICAL HISTORY OF STRESS FRACTURE OF L3 PMH - PAST MEDICAL HISTORY OF 2008 neck pain treated with cortison injections Spina bifida occulta Trauma PAST SURGICAL HISTORY Procedure Laterality Date MYRINGOTOMY ASPIRAND/EUSTACHIAN TUBE NFLTJ ANES Myringotomy/tubes PAST SURGICAL HISTORY OF 1999 back surgery PAST SURGICAL HISTORY OF BONE CYST IN MOUTH TONSILLECTOMY PRIMARY/SECONDARY Tonsillectomy SOCIAL HISTORY Social History Tobacco Use Smoking status: Former Packs/day: 0.25 Years: 1.00 Total pack years: 0.25 Types: Cigarettes Quit date: 12/01/2006 Years since quittin.2 Smokeless tobacco: Never Substance Use Topics Alcohol use: No Drug use: No MEDICATIONS: lisinopril (ZESTRIL) 10 mg tablet Take 10 mg by mouth once daily. cyclobenzaprine (FLEXERIL) 10 mg tablet Take by mouth three times daily as needed. PROGESTERONE MICRONIZED ORAL Take by mouth. Sublingual acetaminophen 325 mg cap Take by mouth. naproxen sodium 220 mg cap Take by mouth as needed. OTC PRODUCT Pt started on birthcontrol will bring the name ALLERGIES: ALLERGIES No Known Allergies PHYSICAL EXAM: BP 122/76 Pulse 80 LMP 11/30/2022 (Exact Date) NAD Diagnostic tests reviewed for today's visit: Most recent imaging IMPRESSION: Ms. Helms is a 37 year old female has s/s ntos . PLAN and RECOMMENDATIONS: Much improved after lidocaine injection Consider botox injection SIGNATURE: Ramon Sykes MD PATIENT NAME: Mary Helms DATE: February 13, 2023 TIME: 4:24 [facility]08-02-2023 History of Present illness Narrative* Ramon Sykes MD - 02/13/2023 4:23 PM EDT Images from the original note were not included. Heart , V[facility] Thor[facility] [place] DEPARTMENT OF VASCULAR SURGERY OUTPATIENT VISIT DATE February 13, 2023 OUTPATIENT VISIT TYPE ESTABLISHED SERVICE DATE: 02/13/2023 SERVICE TIME: 4:24 PM PRIMARY CARE PHYSICIAN: Fred Salter MD HISTORY OF PRESENT ILLNESS: Ms. Helms is a 37 year old female who presents today for a vascular surgery follow-up visit of right first rib resection from osh. Doing ok. Much improved after injection. PAST MEDICAL HISTORY Diagnosis Date Diabetes mellitus of mother, complicating , childbirth, or the puerperium, unspecified as to episode of care(038.00) Gestational diabetes Diabetes, gestational Genital herpes 2003 PCOS (polycystic ovarian syndrome) PMH - PAST MEDICAL HISTORY OF STRESS FRACTURE OF L3 PMH - PAST MEDICAL HISTORY OF 2009 neck pain treated with cortison injections Spina bifida occulta Trauma PAST SURGICAL HISTORY Procedure Laterality Date MYRINGOTOMY ASPIR&/EUSTACHIAN TUBE NFLTJ ANES Myringotomy/tubes PAST SURGICAL HISTORY OF 1998 back surgery PAST SURGICAL HISTORY OF BONE CYST IN MOUTH TONSILLECTOMY PRIMARY/SECONDARY <AGE 11 Tonsillectomy SOCIAL HISTORY Social History Tobacco Use Smoking status: Former Packs/day: 0.25 Years: 1.00 Total pack years: 0.25 Types: Cigarettes Quit date: 12/01/2006 Years since quittin.2 Smokeless tobacco: Never Substance Use Topics Alcohol use: No Drug use: No MEDICATIONS: lisinopril (ZESTRIL) 10 mg tablet Take 10 mg by mouth once daily. cyclobenzaprine (FLEXERIL) 10 mg tablet Take by mouth three times daily as needed. PROGESTERONE MICRONIZED ORAL Take by mouth. Sublingual acetaminophen 325 mg cap Take by mouth. naproxen sodium 220 mg cap Take by mouth as needed. OTC PRODUCT Pt started on birthcontrol will bring the name ALLERGIES: ALLERGIES No Known Allergies PHYSICAL EXAM: BP 122/76 Pulse 80 LMP 11/30/2022 (Exact Date) NAD Diagnostic tests reviewed for today's visit: Most recent imaging IMPRESSION: Ms. Helms is a 37 year old female has s/s ntos . PLAN and RECOMMENDATIONS: Much improved after lidocaine injection Consider botox injection SIGNATURE: Ramon Sykes MD PATIENT NAME: Mary Helms DATE: February 13, 2023 TIME: 4:24 PM documented in this encounterCenterville07-03-2023 Miscellaneous Notes* Telephone Encounter - Wendy Singh - 01/14/2023 10:11 AM EDT LVM for patient to call. When patient returns call please offer patient a sooner injection appointment here at . Please offer patient Thursday 01/25. Unfortunately, due to insurance patient will not be able to come in this Thursday 01/18, won't get approval in time. * Telephone Encounter - Beatriz Powers APRN.CNP - 01/11/2023 12:54 PM EDT Spoke with Dr. Gonzalez who recommends an office visit to discuss. Steroid packs are not recommended at this time. Beatriz Powers APRN.ABDOULAYE * Telephone Encounter - Elias Gonzalez MD - 01/04/2023 1:08 PM EDT Please was evaluated for the blocks. I would recommend proceeding with the block. I am unsure for the indication Medrol dose sheng and was not evaluated for it. Please discuss with PCP/Vascular surgeonMedrol dose sheng. Please add her for the block this coming Saturday if possible * Telephone Encounter - Beatriz Powers APRN.CNP - 01/03/2023 12:30 PM EDT Patient last seen 12/20/2022. Scheduled for a anterior scalene block on 02/07/23. Beatriz Powers APRN.ABDOULAYE * Telephone Encounter - Matilda Mary RN - 01/03/2023 10:34 AM EDT Patient requesting prescription for steroid pack because of the intense pain neck and shoulder. Matilda Mary, CRIS documented in this encounterCenterville06-20-2023 Miscellaneous Notes* Telephone Encounter - Lois Corby Pappas - 01/01/2023 2:52 PM EDT Mary called because she said she can't get a hold of pain management. She said her insurance hasn't approved her injection yet and it has been moved out to 02/07. She would like Dr. Sykes to prescribe her a steroid pack because she can't get a hold of pain management. Lois Pappas Front Desk Agent documented in this encounterCenterville06-15-2023 NoteHNO ID: [id number] Author: Arianna Inman RN Service: Radiology Author Type: Registered Nurse Type: Progress Notes Filed: 12/27/2022 2:03 PM Note Text: Radiology Service Progress Note DATE OF SERVICE: December 27, 2022 TIME: 1:43 PM PATIENT WEIGHT: 150LBS PATIENT IDENTITY VERIFICATION COMPLETED USING TWO (2) STANDARD IDENTIFIERS: Name and Date of confirmed by patient verbally and Name and Date of confirmed by identification band. FALL SCREENING: Has the patient had 2 falls in the last year or 1 fall with injury or currently using an Ambulatory Assistive Device (Walker, Cane, Wheelchair, Crutches, etc.)? No PATIENT GENDER DATA: Female. status: : No status: NO. ALLERGIES: Reviewed and unchanged CONTRAST ALLERGY: No EXAM: CT -CONTRAST INDUCED NEPHROPATHY RISK FACTORS: History of Kidney surgery, Kidney neoplasm, Liver disease, and/or any recent Nephrotoxic Chemotherapy or other Nephrotoxic medications CREATININE: Creatinine (POCT) Date Value Ref Range Status 12/27/2022 0.90 0.7 - 1.4 mg/dL Final eGFR (POCT) Date Value Ref Range Status 12/27/2022 >60 mL/min/1.73 m2 Final P.O.C.T. RESULTS: POC done: Yes, See Lab Tab December 27, 2022 TREATMENT: No Hydration needed. IV SITE: Ambulatory: A peripheral IV was started in the Left antecubital site with a Angio cath: 20 gauge. and A Saline lock was inserted per protocol IV SITE APPEARANCE: Clean,Dry and Intact SIGNATURE: Arianna Inman RN PATIENT NAME: Mary Helms DATE: December 27, 2022 TIME: 1:43 [facility]06-15-2023 NoteHNO ID: [id number] Author: RT Natividad(R) Service: Radiology Author Type: Technologist Type: Progress Notes Filed: 12/27/2022 2:09 PM Note Text: Radiology Service Progress Note PATIENT NAME: Mary Helms DATE OF SERVICE: December 27, 2022 TIME: 2:09 PM PATIENT IDENTITY VERIFICATION COMPLETED USING TWO (2) IDENTIFIERS: Name and Date of confirmed by patient verbally and Name and Date of confirmed by identification band. FALL SCREENING: Has the patient had 2 falls in the last year or 1 fall with injury or currently using an Ambulatory Assistive Device (Walker, Cane, Wheelchair, Crutches, etc.)? No PATIENT GENDER DATA: Female. status: : No status: NO. PATIENT RELEVANT IMPLANT DATA REVIEWED: Yes RADIOLOGY DEPARTMENT: CT; Exam(s) Completed: CTA CHEST PERIPHERAL IV DATA: Site assessment: Clean,Dry and Intact, Site disposition Discontinued SIGNED BY: RT Natividad(R) December 27, 2022 2:09 [facility]06-15-2023 NoteHNO ID: [id number] Author: Arianna Inman RN Service: Radiology Author Type: Registered Nurse Type: Progress Notes Filed: 12/27/2022 3:57 PM Note Text: RADIOLOGY SERVICE PROGRESS NOTE DATE OF SERVICE: December 27, 2022 TIME OF SERVICE: 1422 EVENT: Called on phone by geological technician to come to the room. Patient was laying on the CT table post CT scan with IV contrast for Thoracic Outlet. Radiology Fellow, Gómez Dobbs MD at bedside assessing patient. Patient reports feeling her heart racing. Vital signs obtained and heart rate 140's, BP 144/80, Respirations . Pulse ox 100% on room air. Patient denied feeling short of breath, no difficulty breathing or swallowing. No swelling, no flushing, no rash or itching. CMET called and IV fluid bolus given as ordered by Dr. Dobbs. Heart rate decreased to 100's then 90's. Patient reports no longer feeling uncomfortable in her chest and racing subsided. CMET arrived and patient reported feeling anxious. Patient transferred to the ED by VIDAL Team on monitor,accompanied by her family member, to be further assessed for tachycardia and chest discomfort. Please see detailed note in Epic by Dr. Gómez Dobbs MD. ADDITIONAL EVENT DETAILS: N/A SIGNATURE: Arianna Inman RN PATIENT NAME: Mary Helms DATE: December 27, 2022 TIME: 3:18 PM PAGER/CONTACT #:[facility]06-15-2023 History of Present illness Narrative* Arianna Inman RN - 12/27/2022 1:30 PM EDT Radiology Service Progress Note DATE OF SERVICE: December 27, 2022 TIME: 1:43 PM PATIENT WEIGHT: 150LBS PATIENT IDENTITY VERIFICATION COMPLETED USING TWO (2) STANDARD IDENTIFIERS: Name and Date of confirmed by patient verbally and Name and Date of confirmed by identification band. FALL SCREENING: Has the patient had 2 falls in the last year or 1 fall with injury or currently using an Ambulatory Assistive Device (Walker, Cane, Wheelchair, Crutches, etc.)? No PATIENT GENDER DATA: Female. status: : No status: NO. ALLERGIES: Reviewed and unchanged CONTRAST ALLERGY: No EXAM: CT -CONTRAST INDUCED NEPHROPATHY RISK FACTORS: History of Kidney surgery, Kidney neoplasm, Liver disease, and/or any recent Nephrotoxic Chemotherapy or other Nephrotoxic medications CREATININE: Creatinine (POCT) Date Value Ref Range Status 12/27/2022 0.90 0.7 - 1.4 mg/dL Final eGFR (POCT) Date Value Ref Range Status 12/27/2022 >60 mL/min/1.73 m2 Final P.O.C.T. RESULTS: POC done: Yes, See Lab Tab December 27, 2022 TREATMENT: No Hydration needed. IV SITE: Ambulatory: A peripheral IV was started in the Left antecubital site with a Angio cath: 20gauge. and A Saline lock was inserted per protocol IV SITE APPEARANCE: Clean,Dry and Intact SIGNATURE: Arianna Inman RN PATIENT NAME: Mary Helms DATE: December 27, 2022 TIME: 1:43 PM * RT Natividad(Sherwin) - 12/27/2022 1:30 PM EDT Radiology Service Progress Note PATIENT NAME: Mary Helms DATE OF SERVICE: December 27, 2022 TIME: 2:09 PM PATIENT IDENTITY VERIFICATION COMPLETED USING TWO (2) IDENTIFIERS: Name and Date of confirmedby patient verbally and Name and Date of confirmed by identification band. FALL SCREENING: Has the patient had 2 falls in the last year or 1 fall with injury or currently using an Ambulatory Assistive Device (Walker, Cane, Wheelchair, Crutches, etc.)? No PATIENT GENDER DATA: Female. status: : No status: NO. PATIENT RELEVANT IMPLANT DATA REVIEWED: Yes RADIOLOGY DEPARTMENT: CT; Exam(s) Completed: CTA CHEST PERIPHERAL IV DATA: Site assessment: Clean,Dry and Intact, Site disposition Discontinued SIGNED BY: RT Natividad(R) December 27, 2022 2:09 PM * Arianna Inman RN - 12/27/2022 1:30 PM EDT RADIOLOGY SERVICE PROGRESS NOTE DATE OF SERVICE: December 27, 2022 TIME OF SERVICE: 3 EVENT: Called on phone by geological technician to come to the room. Patient was laying on the CT table post CT scan with IV contrast for Thoracic Outlet. Radiology Fellow, Gómez Dobbs MD at bedside assessing patient. Patient reports feeling her heart racing. Vital signs obtained and heart rate 140's, BP 144/80, Respirations . Pulse ox 100% on room air. Patient denied feeling short of breath, no difficulty breathing or swallowing. No swelling, no flushing, no rash or itching. CMET called and IV fluid bolus given as ordered by Dr. Dobbs. Heart rate decreased to 100's then 90's. Patient reports no longer feeling uncomfortable in her chest and racing subsided. CMET arrived and patient reported feeling anxious. Patient transferred to the ED by VIDAL Team on monitor,accompanied by her family member, to be further assessed for tachycardia and chest discomfort. Please see detailed note in Epic by Dr. Gómez Dobbs MD. ADDITIONAL EVENT DETAILS: N/A SIGNATURE: Arianna Inman RN PATIENT NAME: Mary Helms DATE: December 27, 2022 TIME: 3:18 PM PAGER/CONTACT #: documented in this encounterCenterville06-08-2023 NoteHNO ID: [id number] Author: Elias Gonzaelz MD Service: ? Author Type: Physician Type: Progress Notes Filed: 12/21/2022 9:35 AM Note Text: [place] [facility] New Patient Visit Referring Physician: Ramon Sykes [id number] [facility] [address] Chief Complaint: Right neck pain SUBJECTIVE: Mary Helms is a 37 year old female who presents to [facility] with a chief complaint of right neck pain. 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 The patient was referred to our clinic to see if we can perform right anterior scalene block to see if she may benefit from more complete anterior scalenectomy and removal of residual 1st rib. The plan from Dr. Sykes (vascular) was to perform CT chest and nTOS-specific PT referral. The patient reports she has had multiple evaluation with MRI C-spines and she underwent cervical PRATIBHA and cervical facet injections which did not provide any relief. The patient underwent two anterior scalene blocks which provided close to 100% relief for several days. The patient had a right shoulder pain but she does not have her right shoulder pain anymore. The patient has had this pain for 14 years. The pain is located in the right neck and Trapezius and scalene muscle area without a radicular pain. The pain is described as a intermittent pain that is stabbing, aching and sharp. Today, the pain intensity is rated as a 6 on a scale of 0-10. The pain intensity is rated 0 on the BEST day and a 8 on the WORST day. Symptoms interfere with physical activity, cooking, household cleaning, and reaching for shelves. The pain is exacerbated by lying down on the right side. The pain is alleviated by medications. AMB ROOMING INTAKE FLOWSHEET DATA Pain Pain Level: 6 Pain Location: Neck (Right side and posterior right side) Description: Aching, Spasm, Stabbing, Tightness Duration Amount of Time: 14 Duration Units: Years Frequency: Continuous Intervention/Comfort measure: Medication, Cold, Massage, Positioning The patient denies difficulty with bowel or bladder control, unintentional weight loss, arm or leg weakness, numbness or tingling, and ever having cancer. Physical Therapy/Home Exercise: Yes , currently Pain Medications: - Opioids: N - NSAIDs: N - Anti-Depressants: tried amitriptyline, not tried Cymbalta - Anti-Convulsants: tried gabapentin, not tried Lyrica - Others: N OARRS report: Reviewed: The patient's OARRS report was reviewed and is consistent with the reported medication use. Pain medications reviewed: YES Pain Procedures: As above mentioned. S/p Right 1st rib resection Imaging: Pending CT chest PAST MEDICAL HISTORY Diagnosis Date Diabetes mellitus of mother, complicating , childbirth, or the puerperium, unspecified as to episode of care(108.00) Gestational diabetes Diabetes, gestational Genital herpes 2003 PCOS (polycystic ovarian syndrome) PMH - PAST MEDICAL HISTORY OF STRESS FRACTURE OF L3 PMH - PAST MEDICAL HISTORY OF 2008 neck pain treated with cortison injections Spina bifida occulta Trauma PAST SURGICAL HISTORY Procedure Laterality Date MYRINGOTOMY ASPIRAND/EUSTACHIAN TUBE NFLTJ ANES Myringotomy/tubes PAST SURGICAL HISTORY OF 1998 back surgery PAST SURGICAL HISTORY OF BONE CYST IN MOUTH TONSILLECTOMY PRIMARY/SECONDARY Tonsillectomy Social History Tobacco Use Smoking status: Former Packs/day: 0.25 Years: 1.00 Pack years: 0.25 Types: Cigarettes Quit date: 12/01/2006 Years since quittin.0 Smokeless tobacco: Never Substance Use Topics Alcohol use: No Drug use: No FAMILY HISTORY Problem Relation Age of Onset Cancer Paternal Grandmother SKIN CANCER Prostate Cancer Paternal Grandfather Heart Maternal Grandfather LA Heart Paternal Grandfather LA Lipids Maternal Grandmother ALLERGIES No Known Allergies Current Outpatient Medications Medication Sig lisinopril (ZESTRIL) 10 mg tablet Take 10 mg by mouth once daily. cyclobenzaprine (FLEXERIL) 10 mg tablet Take by mouth three times daily as needed. acetaminophen 325 mg cap Take by mouth. naproxen sodium 220 mg cap Take by mouth as needed. PROGESTERONE MICRONIZED ORAL Take by mouth. Sublingual No current facility-administered medications for this visit. OBJECTIVE: BP 111/84 Pulse 91 Temp (Src) 98.1 (Temporal) Resp 18 Ht 5' 2 (1.58m) Wt 150 lb (68.0kg) SpO2 98% LMP 11/30/2022 BMI 27.43 kg/(m2). PHYSICAL EXAMINATION: General: Alert, no distress. Psych: Appropriate affect. Skin: No rashes or lesions. Head/face: Normocephalic, atraumatic. Neck: No pain to palpation over the cervical paraspinous muscles. No pain with neck f (more content not included)...[facility]05-03-2023 NoteHNO ID: [id number] Author: Ramon Sykes MD Service: ? Author Type: Physician Type: Progress Notes Filed: 11/14/2022 2:06 PM Note Text: Heart , Vascular and Thoracic [place] DEPARTMENT OF VASCULAR SURGERY OUTPATIENT VISIT DATE November 14, 2022 OUTPATIENT VISIT TYPE CONSULTATION SERVICE DATE: 11/14/2022 SERVICE TIME: 10:53 AM PRIMARY CARE PHYSICIAN: No primary care provider on file. REFERRING PROVIDER: SELF Consult requested for an opinion regarding the evaluation and treatment of the above. My final impression and recommendations will be communicated back to the requesting physician by way of the shared medical record or letter via [place] mail. CHIEF COMPLAINT: R shoulder and arm pain HISTORY OF PRESENT ILLNESS: Vascular consultation at the request of Dr. Hendrix. A copy of this consultation note will be provided to the requesting physician by way of shared Medical record or letter to requesting physician via US mail. Ms. 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 PMHx notable for previous R 1st rib resection via trans-axillary approach and pec minor release in November 2021. Patient had improvement of symptoms, especially in the arm, but the neck and jaw pain she experiences has not really improved. She had a scalene block after surgery and this improved her symptoms but she also what sounds like phrenic nerve involvement at the time. As a teen she played softball, gymnastics, and cheerleading. Symptoms started in her 20s when she had her first child. Symptoms made worse with laying on R side and heavy RUE use. PAST MEDICAL HISTORY Diagnosis Date Diabetes mellitus of mother, complicating , childbirth, or the puerperium, unspecified as to episode of care(548.00) Gestational diabetes Diabetes, gestational Genital herpes 2003 PCOS (polycystic ovarian syndrome) PMH - PAST MEDICAL HISTORY OF STRESS FRACTURE OF L3 PMH - PAST MEDICAL HISTORY OF 2008 neck pain treated with cortison injections Spina bifida occulta Trauma PAST SURGICAL HISTORY Procedure Laterality Date MYRINGOTOMY ASPIRAND/EUSTACHIAN TUBE NFLTJ ANES Myringotomy/tubes PAST SURGICAL HISTORY OF 1998 back surgery PAST SURGICAL HISTORY OF BONE CYST IN MOUTH TONSILLECTOMY PRIMARY/SECONDARY Tonsillectomy SOCIAL HISTORY: Social History Tobacco Use Smoking status: Former Packs/day: 0.25 Years: 1.00 Pack years: 0.25 Types: Cigarettes Quit date: 12/01/2006 Years since quittin.9 Smokeless tobacco: Never Substance Use Topics Alcohol use: No Drug use: No FAMILY HISTORY Problem Relation Age of Onset Cancer Paternal Grandmother SKIN CANCER Prostate Cancer Paternal Grandfather Heart Maternal Grandfather LA Heart Paternal Grandfather LA Lipids Maternal Grandmother MEDICATIONS: lisinopril (ZESTRIL) 10 mg tablet Take 10 mg by mouth once daily. cyclobenzaprine (FLEXERIL) 10 mg tablet Take by mouth three times daily as needed. predniSONE 10 mg tablet pack Take by mouth once daily. Tapering down from 40 mg PROGESTERONE MICRONIZED ORAL Take by mouth. Sublingual acetaminophen (TYLENOL) 325 mg cap Take by mouth. naproxen sodium (ALEVE) 220 mg cap Take by mouth as needed. blood sugar diagnostic test strip 1 Strip four times daily. Use as instructed (Patient not taking: Reported on 11/14/2022) Blood-Glucose Meter Misc 1 Each as directed. (Patient not taking: Reported on 11/14/2022) Lancets lancets 1 Each four times daily. Use as instructed (Patient not taking: Reported on 11/14/2022) Urine Glucose-Ketones Test Strp 1 Strip four times daily. (Patient not taking: Reported on 11/14/2022) Xwhtsnre-Ml-Qsv-Fe-FA ORAL Tab Take one(1) tablet daily. (Patient not taking: Reported on 11/14/2022) ALLERGIES: ALLERGIES No Known Allergies REVIEW OF SYSTEM: Constitutional: No weight loss, malaise or fevers. HEENT: Negative for frequent or significant headaches Respiratory: Negative for cough, wheezing, or shortness of breath Cardiovascular: Negative for chest pain, leg swelling or palpitations Gatrointestinal: Negative for abdominal discomfort, blood in stools or black stools or change in bowel habits Genitourinary: No history of dysuria, frequency, or incontinence Musculoskeletal: Negative for joint pain or swelling, back pain or muscle pain Endocrine: Negative for cold or heat intolerance, polyuria, polydipsia and goiter Hematology/Lymphatic: Negative for prolonged bleeding, bruising easily or swollen nodes Neurologic: No history or headaches, syncope, paralysis, seizures or tremors Integumentary: Negative for lesions, rash, and itching. PHYSICAL EXAM: VITALS: BP 126/84 Pulse 83 Resp 17 Ht 5' 2 (1.58m) Wt 146 lb (66.2kg) SpO2 99% LMP 06/15/2012 BMI 26.70 kg/(m2). General: Alert and oriented Integumentary: Normal color, no rash, no lesions. HEENT: EOM, pupils equal, round and reactive. (more content not included)...[facility]05-03-2023 History of Present illness Narrative* Ramon Sykes MD - 11/14/2022 10:53 AM EDT Images from the original note were not included. Heart , Vascular and Thoracic [place] DEPARTMENT OF VASCULAR SURGERY OUTPATIENT VISIT DATE November 14, 2022 OUTPATIENT VISIT TYPE CONSULTATION SERVICE DATE: 11/14/2022 SERVICE TIME: 10:53 AM PRIMARY CARE PHYSICIAN: No primary care provider on file. REFERRING PROVIDER: SELF Consult requested for an opinion regarding the evaluation and treatment of the above. My final impression and recommendations will be communicated back to the requesting physician by way of the shared medical record or letter via [place] mail. CHIEF COMPLAINT: R shoulder and arm pain HISTORY OF PRESENT ILLNESS: Vascular consultation at the request of Dr. Hendrix. A copy of this consultation note will be providedto the requesting physician by way of shared Medical record or letter to requesting physician via [place] mail. Ms. 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 PMHx notable for previous R 1st rib resection via trans-axillary approach and pec minor release in November 2021. Patient had improvement of symptoms, especially in the arm, but the neck and jaw pain she experiences hasnot really improved. She had a scalene block after surgery and this improved her symptoms but she also what sounds like phrenic nerve involvement at the time. As a teen she played softball, gymnastics, and cheerleading. Symptoms started in her 20s when she had her first child. Symptoms made worse with laying on R side and heavy RUE use. PAST MEDICAL HISTORY Diagnosis Date Diabetes mellitus of mother, complicating , childbirth, or the puerperium, unspecified as to episode of care(648.00) Gestational diabetes Diabetes, gestational Genital herpes 2003 PCOS (polycystic ovarian syndrome) PMH - PAST MEDICAL HISTORY OF STRESS FRACTURE OF L3 PMH - PAST MEDICAL HISTORY OF 2008 neck pain treated with cortison injections Spina bifida occulta Trauma PAST SURGICAL HISTORY Procedure Laterality Date MYRINGOTOMY ASPIR&/EUSTACHIAN TUBE NFLTJ ANES Myringotomy/tubes PAST SURGICAL HISTORY OF 1998 back surgery PAST SURGICAL HISTORY OF BONE CYST IN MOUTH TONSILLECTOMY PRIMARY/SECONDARY <AGE 11 Tonsillectomy SOCIAL HISTORY: Social History Tobacco Use Smoking status: Former Packs/day: 0.25 Years: 1.00 Pack years: 0.25 Types: Cigarettes Quit date: 12/01/2006 Years since quittin.9 Smokeless tobacco: Never Substance Use Topics Alcohol use: No Drug use: No FAMILY HISTORY Problem Relation Age of Onset Cancer Paternal Grandmother SKIN CANCER Prostate Cancer Paternal Grandfather Heart Maternal Grandfather LA Heart Paternal Grandfather LA Lipids Maternal Grandmother MEDICATIONS: lisinopril (ZESTRIL) 10 mg tablet Take 10 mg by mouth once daily. cyclobenzaprine (FLEXERIL) 10 mg tablet Take by mouth three times daily as needed. predniSONE 10 mg tablet pack Take by mouth once daily. Tapering down from 40 mg PROGESTERONE MICRONIZED ORAL Take by mouth. Sublingual acetaminophen (TYLENOL) 325 mg cap Take by mouth. naproxen sodium (ALEVE) 220 mg cap Take by mouth as needed. blood sugar diagnostic test strip 1 Strip four times daily. Use as instructed (Patient not taking: Reported on 11/14/2022) Blood-Glucose Meter Misc 1 Each as directed. (Patient not taking: Reported on 11/14/2022) Lancets lancets 1 Each four times daily. Use as instructed (Patient not taking: Reported on 11/14/2022) Urine Glucose-Ketones Test Strp 1 Strip four times daily. (Patient not taking: Reported on 11/14/2022) Ddyveorr-Et-Qkx-Fe-FA ORAL Tab Take one(1) tablet daily. (Patient not taking: Reported on 11/14/2022) ALLERGIES: ALLERGIES No Known Allergies REVIEW OF SYSTEM: Constitutional: No weight loss, malaise or fevers. HEENT: Negative for frequent or significant headaches Respiratory: Negative for cough, wheezing, or shortness of breath Cardiovascular: Negative for chest pain, leg swelling or palpitations Gatrointestinal: Negative for abdominal discomfort, blood in stools or black stools or change in bowel habits Genitourinary: No history of dysuria, frequency, or incontinence Musculoskeletal: Negative for joint pain or swelling, back pain or muscle pain Endocrine: Negative for cold or heat intolerance, polyuria, polydipsia and goiter Hematology/Lymphatic: Negative for prolonged bleeding, bruising easily or swollen nodes Neurologic: No history or headaches, syncope, paralysis, seizures or tremors Integumentary: Negative for lesions, rash, and itching. PHYSICAL EXAM: VITALS: BP 126/84 Pulse 83 Resp 17 Ht 5' 2 (1.58m) Wt 146 lb (66.2kg) SpO2 99% LMP 06/15/2012 BMI 26.70 kg/(m^2). General: Alert and oriented Integumentary: Normal color, no rash, no lesions. HEENT: EOM, pupils equal, round and reactive. Cardiovascular: Normal S1 & S2, no rubs, murmurs or gallops. No JVD., Pulse regular. Lungs: Normal breath sounds, no wheezes or crackles. Abdomen: Soft, non-tender, no rigidity. Extremities: No deformity, no edema or tenderness, no joint swelling or clubbing. Scar over R chest, TTP over R neck Neurological: Normal cognition and motor skills. Vascular: Radial Pulse Right: Normal - Left: Normal Diagnostic tests reviewed for today's visit: None relevant at this time IMPRESSION: Ms. Helms is a 37 year old female with chronic RUE and R neck pain with symptoms consistent with nTOS, s/p R 1st rib resection and pec minor release last year at OSH via trans-ax approach; mild improvement of symptoms but continues to have significant pain in the neck/face; will r/p scalene blockand obtain imaging to determine if she may benefit from more complete anterior scalenectomy and removal of residual 1st rib PLAN and RECOMMENDATIONS: - CT chest - scalene block referral - nTOS-specific PT referral - RTC after the above is completed Neal Montaño MD SIGNATURE: Ramon Sykes MD PATIENT NAME: Mary Helms DATE: November 14, 2022 TIME: 10:53 AM [facility] STAFF PHYSICIAN NOTE OF PERSONAL INVOLVEMENT IN CARE Patient is seen in consultation at the request of the above noted physician. Based on my evaluationshe is a candidate for scalene block CT of the chest and physical therapy she will follow-up with me once she accomplishes all of these f things PLAN DISCUSSED WITH: pt See problem list I have reviewed the documentation obtained and documented by the Resident and I have personally performed a face to face assessment of the patient and have personally participated in the hernandez components of the visit which includes medical decision making. and have reviewed and updated the problem list as appropriate. I have personally performed a face to face assessment of the patient and have personally participated in the hernandez components. I have discussed the case and management of the patient's care. STAFF PHYSICIAN: Ramon Sykes MD DATE of SERVICE: 11/14/2022 TIME of SERVICE: 1:33 PM [place] Miscellaneous Notes* Telephone Encounter - Paxton Garay - 10/31/2022 3:38 PM EDT Reason for call: Ms Helms called and he would like to schedule an appointment with [place] and cell number: [phone] Diagnosis: Thoracic outlet syndrome Kind RegardsPaxton documented in this encounter[place]04-03-2023 Evaluation + Plan note Diagnostic Tests Pending * Estradiol Level 10/15/22 * Testosterone Level Total 10/15/22 * Progesterone Level 10/15/22 * Dehydroepiandrosterone Sulfate 10/15/22 * Vitamin B12 Level 10/15/22 [facility] 05-05-2010 History of Past illness Narrative* Problem Noted Date Resolved Date Herpes 11/16/2009 03/10/2012 Diabetes mellitus, antepartum(648.03) 08/18/2008 03/10/2012 Supervision of normal first 01/08/2008 04/26/2009 documented as of this encounter (statuses as of 11/01/2022) [place]05-05-2010 History of Past illness Narrative* Problem Noted Date Resolved Date Herpes 11/16/2009 03/10/2012 Diabetes mellitus, antepartum(648.03) 08/18/2008 03/10/2012 Supervision of normal first 01/08/2008 04/26/2009 documented as of this encounter (statuses as of 11/02/2022) [place]05-05-2010 History of Past illness Narrative* Problem Noted Date Resolved Date Herpes 11/16/2009 03/10/2012 Diabetes mellitus, antepartum(648.03) 08/18/2008 03/10/2012 Supervision of normal first 01/08/2008 04/26/2009 documented as of this encounter (statuses as of 11/14/2022) [place]05-05-2010 History of Past illness Narrative* Problem Noted Date Resolved Date Herpes 11/16/2009 03/10/2012 Diabetes mellitus, antepartum(648.03) 08/18/2008 03/10/2012 Supervision of normal first 01/08/2008 04/26/2009 documented as of this encounter (statuses as of 11/14/2022) [place]05-05-2010 History of Past illness Narrative* Problem Noted Date Resolved Date Herpes 11/16/2009 03/10/2012 Diabetes mellitus, antepartum(648.03) 08/18/2008 03/10/2012 Supervision of normal first 01/08/2008 04/26/2009 documented as of this encounter (statuses as of 11/15/2022) [place]-05-2010 History of Past illness Narrative* Problem Noted Date Resolved Date Herpes 11/16/2009 03/10/2012 Diabetes mellitus, antepartum(648.03) 08/18/2008 03/10/2012 Supervision of normal first 01/08/2008 04/26/2009 documented as of this encounter (statuses as of 12/28/2022) [address]05-2010 History of Past illness Narrative* Problem Noted Date Resolved Date Herpes 11/16/2009 03/10/2012 Diabetes mellitus, antepartum(648.03) 08/18/2008 03/10/2012 Supervision of normal first 01/08/2008 04/26/2009 documented as of this encounter (statuses as of 01/02/2023) [place]05-05-2010 History of Past illness Narrative* Problem Noted Date Diagnosed Date Resolved Date Herpes 11/16/2009 03/10/2012 Diabetes mellitus, antepartum(648.03) 08/18/2008 03/10/2012 Supervision of normal first 01/08/2008 04/26/2009 documented as of this encounter (statuses as of 01/22/2023) [address]05-2010 History of Past illness Narrative* Problem Noted Date Diagnosed Date Resolved Date Herpes 11/16/2009 03/10/2012 Diabetes mellitus, antepartum(648.03) 08/18/2008 03/10/2012 Supervision of normal first 01/08/2008 04/26/2009 documented as of this encounter (statuses as of 02/14/2023) [address]05-2010 History of Past illness Narrative* Problem Noted Date Diagnosed Date Resolved Date Herpes 11/16/2009 03/10/2012 Diabetes mellitus, antepartum(648.03) 08/18/2008 03/10/2012 Supervision of normal first 01/08/2008 04/26/2009 documented as of this encounter (statuses as of 05/24/2023) [address]05-2010 History of Past illness Narrative* Problem Noted Date Diagnosed Date Resolved Date Herpes 11/16/2009 03/10/2012 Diabetes mellitus, antepartum(648.03) 08/18/2008 03/10/2012 Supervision of normal first 01/08/2008 04/26/2009 documented as of this encounter (statuses as of 08/21/2023) [place] Future Appointments Appointment Date:07/01/2023 01:30:00 PM Scheduled Provider: Location:[facility] Appointment Type:CV FORENSIC COMPUTER EXAMINER Appointment Date:08/16/2023 11:00:00 AM Scheduled Provider: Location:[facility] Appointment Type:CV OV [facility] Evaluation + Plan note Future Appointments Appointment Date:07/11/2023 07:45:00 AM Scheduled Provider: Location:[facility] Appointment Type:HL Plain Stress Test Appointment Date:08/16/2023 11:00:00 AM Scheduled Provider: Location:[facility] Appointment Type:CV OV Appointment Date:09/30/2023 01:00:00 PM Scheduled Provider: Location:[facility] Appointment Type:CV OV [facility] Evaluation note* Diagnosis TOS (thoracic outlet syndrome)- Primary Brachial plexus lesions documented in this encounter [facility] note* Diagnosis TOS (thoracic outlet syndrome)- Primary Brachial plexus lesions documented in this encounter [facility] note* Diagnosis TOS (thoracic outlet syndrome)- Primary Brachial plexus lesions documented in this encounter [facility] note* Diagnosis Thoracic outlet syndrome- Primary Brachial plexus lesions documented in this encounter [facility] note* Diagnosis Thoracic outlet syndrome Brachial plexus lesions TOS (thoracic outlet syndrome) Brachial plexus lesions Neck pain on right side Cervicalgia Chronic right shoulder pain Pain in joint, shoulder region Myofascial pain Mylagia and myositis, unspecified documented in this encounter [facility] note* Diagnosis TOS (thoracic outlet syndrome)- Primary Brachial plexus lesions Myofascial pain Mylagia and myositis, unspecified TOS (thoracic outlet syndrome) Brachial plexus lesions Neck pain on right side Cervicalgia Chronic right shoulder pain Pain in joint, shoulder region Myofascial pain Mylagia and myositis, unspecified documented in this encounter [facility] note* Diagnosis TOS (thoracic outlet syndrome)- Primary Brachial plexus lesions documented in this encounter [facility] note* Diagnosis Myofascial pain- Primary Mylagia and myositis, unspecified TOS (thoracic outlet syndrome) Brachial plexus lesions Cervical dystonia Spasmodic torticollis Cervical dystonia Spasmodic torticollis documented in this encounter [facility] course Narrative No data available for this section [facility] Hospital Discharge instructions No data available for this section [facility] Progress note No data available for this section [facility] Reason for referral (narrative)* Outpatient Procedure (Routine) - Authorized Specialty Diagnoses / Procedures Referred By Donna t Referred To Contact [facility] [place] Diagnoses TOS (thoracic outlet syndrome) Procedures PVR THORACIC OUTLET CATHY VAS LAB NON-INVASIVE PHYSIOLOGIC STUDY EXTREMITY 3 LEVLS Ramon Sykes MD [address] [place] [address] [facility] [address] [place] [address] Referral ID Status Reason Start Date Expiration Date Visits Requested Visits Authorized [id number] Authorized Auto-Generat ed Referral 11/01/2022 11/01/2023 1 1 [place] Reason for Referral Specialty Diagnoses / Procedures [facility] CT IM[facility] Diagnoses Thoracic outlet syndrome Procedures CTA CHEST (NONGATED) W IVCON CT ANGIOGRAPHY CHEST W/CONTRAST/NONCONTRAST Ramon Sykes MD [address] [place] [address] Ct Imaging Referral ID Status Reason Start Date Expiration Date Visits Requested Visits Authorized [id number] Pending Review Auto-Generat ed Referral 11/15/2022 12/15/2023 1 1 Specialty Diagnoses / Procedures [facility] Referred To Contact Pain Management Diagnoses TOS (thoracic outlet syndrome) Procedures CONSULT TO PAIN MGT OFFICE/OUTPATIENT PENDING SALE TO [facility] MDM 60-74 MINUTES Ramon Sykes MD [address] [place] [address] Referral ID Status Reason Start Date Expiration Date Visits Requested Visits Authorized [id number] Authorized PCP Requested Referral 11/14/2022 11/14/2023 1 1 Summary Purpose Family History No Family History Records Found Advance Directives No Advanced Directives Records FoundNo Advanced Directives Records Found Additional Source Comments Patient Care team informatio n (unrecognized section and content) Circulation Crew Leader Relationship Specialty Start Date End Date Fred Salter MD [address] [place] [address] PCP - General Internal Medicine 12/20/22 Circulation Crew Leader Relationship Specialty Start Date End Date Fred Salter MD [address] [place] [address] PCP - General Internal Medicine 12/20/22 Circulation Crew Leader Relationship Specialty Start Date End Date Fred Salter MD [address] [place] [address] PCP - General Internal Medicine 12/20/22 Circulation Crew Leader Relationship Specialty Start Date End Date Fred Salter MD [address] [place] [address] PCP - General Internal Medicine 12/20/22 Circulation Crew Leader Relationship Specialty Start Date End Date Fred Salter MD [address] [place] [address] PCP - General Internal Medicine 12/20/22 Source Comments (unrecognize d section and content) In the event this informatio n is protected by the Federal Confidentiality of Alcohol and Drug Abuse Patient Records regulations: The Federal rules restrict any use of the information to criminally investigate or prosecute any alcohol or drug abuse patient.[place] the event this information is protected by the Federal Confidentiality of Alcohol and Drug Abuse Patient Records regulations: The Federal rules restrict any use of the information to criminally investigate or prosecute any alcohol or drug abuse patient.[place] the event this information is protected by the Federal Confidentiality of Alcohol and Drug Abuse Patient Records regulations: The Federal rules restrict any use of the information to criminally investigate or prosecute any alcohol or drug abuse patient.[place] the event this information is protected by the Federal Confidentiality of Alcohol and Drug Abuse Patient Records regulations: The Federal rules restrict any use of the information to criminally investigate or prosecute any alcohol or drug abuse patient.[place] the event this information is protected by the Federal Confidentiality of Alcohol and Drug Abuse Patient Records regulations: The Federal rules restrict any use of the information to criminally investigate or prosecute any alcohol or drug abuse patient.[place]In the event this information is protected by the Federal Confidentiality of Alcohol and Drug Abuse Patient Records regulations: The Federal rules restrict any use of the information to criminally investigate or prosecute any alcohol or drug abuse patient.[place]In the event this information is protected by the Federal Confidentiality of Alcohol and Drug Abuse Patient Records regulations: The Federal rules restrict any use of the information to criminally investigate or prosecute any alcohol or drug abuse patient.[place]In the event this information is protected by the Federal Confidentiality of Alcohol and Drug Abuse Patient Records regulations: The Federal rules restrict any use of the information to criminally investigate or prosecute any alcohol or drug abuse patient.[place]In the event this information is protected by the Federal Confidentiality of Alcohol and Drug Abuse Patient Records regulations: The Federal rules restrict any use of the information to criminally investigate or prosecute any alcohol or drug abuse patient.[place]ervilleIn the event this information is protected by the Federal Confidentiality of Alcohol and Drug Abuse Patient Records regulations: The Federal rules restrict any use of the information to criminally investigate or prosecute any alcohol or drug abuse patient.[place]In the event this information is protected by the Federal Confidentiality of Alcohol and Drug Abuse Patient Records regulations: The Federal rules restrict any use of the information to criminally investigate or prosecute any alcohol or drug abuse patient.[place] Reason for Visit (unrecogniz ed section and content) Reason Comments New Patient Consult Reason Comments Radiology CT Specialty Diagnoses / Procedures Referred By Contac t Referred To Contact CT IMAGING Diagnoses Thoracic outlet syndrome Procedures CTA CHEST (NONGATED) W IVCON CT ANGIOGRAPHY CHEST W/CONTRAST/NONCONTRAST Ramon Sykes MD [address] [place] [id number] Imaging Referral ID Status Reason Start Date Expiration Date V isits Requested Visits Authorized [id number] Closed Auto-Generate d Referral 11/29/2022 01/28/2023 1 1 Reason Comments Patient Question Reason Comments Nurse Triage Call Reason Comments Established Patient INFORMATION SOURCE (unrecogn ized section and content) DATE CREATED AUTHOR AUTHOR'S ORGANIZ ATION 08/22/2023 [facility] FOR RECORDS PERTAINING TO PATIENTS WHO ARE OR HAVE BEEN ENROLLED IN A CHEMICAL DEPENDENCY/SUBSTANCEABUSE PROGRAM, SOME INFORMATION MAY BE OMITTED. This clinical summary was aggregated from multiple sources. Caution should be exercised in using it in the provision of clinical care. This summary normalizes information from multiple sources, and as a consequence, information in this document may materially change the coding, format and clinical context of patient data. In addition, data may be omitted in some cases. CLINICAL DECISIONS SHOULD BE BASED ON THE PRIMARY CLINICAL RECORDS. [facility]. provides no warranty or guarantee of the accuracy or completeness of information in this document.
[2023-08-22 15:07] LABS: Absolute Lymphocyte Count 1.78 X10^3/uL (0.83-4.51); Absolute Neutrophil Count 3.6 X10^3/uL (2.0-7.7); Basophil# 0.01 X10^3/uL; Basophil% 0.2 % (0-1); Eosinophil# 0.06 X10^3/uL; Hematocrit 40.2 % (37-47); Hemoglobin 12.8 g/dL (12.0-15.0); Lymphocyte # 1.78 X10^3/ul (0.83-4.51); Lymphocyte % 29.4 % (19-41); Mean Corp Hgb Conc 31.8 g/dL (32-36); Mean Corpuscular Hgb 31.2 pg (27.0-32.0); Mean Platelet Vol. 10.1 fl (6.2-12.0); Monocyte# 0.59 X10^3/uL; Monocyte% 9.7 % (0-10); NRBC Flagged by Analyzer 0 % (0-5); Neutrophil # 3.61 X10^3/uL (2.7-7.7); Neutrophil % 59.5 % (47-70); Platelet Count 287 K/mm3 (150-450); RBC Distribution Width CV 13.2 % (11.6-14.6); White Blood Count 6.1 K/mm3 (4.4-11.0)
[2023-08-22 15:18] LABS: Vitamin B12 753 pg/mL (211-911)
[2023-08-22 15:26] LABS: AST(SGOT) 24 U/L (15-37); Alanine Aminotransfer ALT/SGPT 56 U/L (13-56); Albumin, Serum 3.9 g/dL (3.2-5.0); Alkaline Phosphatase 47 U/L (45-117); Anion Gap 7 (5-15); BUN 16 mg/dL (7-18); BUN/Creat Ratio 18.3 RATIO (10-20); CRP 3.03 mg/L (0.0-3.0); Calcium,Total 8.9 mg/dL (8.5-10.1); Chloride 105 mmol/L (98-107); Creatinine, Serum 0.87 mg/dL (0.55-1.02); EST Glomerular Filtration Rate 77 mL/min (>60); Est Glom Filt Rate - Afr Amer 93 mL/min (>60); Glucose 103 mg/dL (74-106); Potassium 3.8 mmol/L (3.5-5.1); Protein, Total 7.9 g/dL (6.4-8.2); Rheumatoid Factor < 10.0 IU/mL (<15); Sodium Level 138 mmol/L (136-145); Thyroid Stim Hormone (TSH) 1.45 uIU/mL (0.358-3.74); Uric Acid 4.3 mg/dL (2.6-6.0)
[2023-08-22 15:47] LABS: Erythrocyte Sedimentation Rate 16 mm/hr (0-30)
[2023-08-24 14:08] LABS: CCP IgG Antibodies 13 units (0-19)
[2023-08-26 11:08] LABS: ANTINUCLEAR ANTIBODIES DIRECT Negative (Negative)
== END | disposition home or self-care (01) ==
LOC: MFPLAB 12:04
PROVIDERS: PCP Internal Medicine; Visit Provider Internal Medicine
DX: G89.4 Chronic pain syndrome (principal)
CPT/HCPCS: 36415; 80053; 82607; 84443; 84550; 85025; 85652; 86038; 86140; 86200; 86431

== ENCOUNTER → 2023-12-13 | Outpatient (CLI) | payer MEDICAID, SELFPAY ==
[2023-12-13 18:17] LABS: Hemoglobin A1c 5.5 % (3.8-5.6)
== END | disposition home or self-care (01) ==
LOC: MFPLAB 14:42
PROVIDERS: PCP Internal Medicine; Visit Provider Family Medicine
DX: Z86.32 Personal history of gestational diabetes (principal)
CPT/HCPCS: 36415; 83036

== ENCOUNTER 2023-12-16 13:30 | Outpatient (RCR) | payer MEDICAID, SELFPAY ==
--- NOTE | 2023-11-06 11:11 | HP.PTEVAL ---
Patient's Visit Information Visit Information Visit Information: DARLENE HELMS is a 38 year old F referred to Physical Therapy by BONI CHRISTIANSON with a diagnosis of R THORACIC OUTLET SYNDROME (DOS 10/03/23). Date of Evaluation: 11/06/23 Physical Therapist: Belle Stevenson PT, Cert MDT Visit Plan Frequency: 2-3x /Week Duration: 2-4 Months Plan: *NO STRENGTHENING UNTIL OK'D BY PHYSICIAN* MUSCLE ENERGY TECHNIQUE/MOBILIZATION TO PELVIS, LUMBAR, THORACIC AND CERVICAL SPINE UPPER QUARTER STRETCHING (PECTORALIS MAJOR, PECOTRALIS MINOR, SCALENES, STERNOCLEIDOMASTOID, AND UPPER TRAPEZIUS SOFT TISSUE MOBILIZATION TO UPPER QUARTER (PECTORRALIS MAJOR, PECTORALIS MINOR, UPPER TRAPEZIUS, STERNOCLEIDOMASTOID) DURAL STRETCHING (MEDIAN, ULNAR, RADIAL) HEP INSTRUCTION POSTURE TRAINING (SITTING, STANDING, SLEEPING) 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 Disability: NO Present symptoms: PATIENT REPORTS SHE IS 60% BETTER SINCE SURGERY AND SHE IS LEFT WITH THE FOLLOWING SYMPTOMS: R UPPER TRAP/SHLD BLADE PAIN THAT GOES UP NECK TO BASE OF SKULL. INCISION GETS A LITTLE SORE. PATIENT DENIES R UE PAIN, NUMBNESS AND TINGLING. DENIES OCAMPO'S. NO L SIDE SX'S. PATIENT REPORTS THAT CURRENTLY HER DAY IS MOSTLY MADE UP OF 0/10 PAIN THEN A SPASM WILL COME AND IT WILL SLOWLY GET BACK TO A 0/10 AGAIN. Present since: ABOUT 15 YEARS AGO Pain Scale: Worst - 8/10 Least - 0/10 Currently: 3/10 - BECAUSE I AM COMING OFF OF A SPASM. Commenced as a result of: STARTED A COUPLE MONTHS AFTER HAVING FIRST BABY. WITH SUBSEQUENT PREGNANCIES PAIN WENT AWAY DURING AND COME BACK AFTER DELIVERY. Symptoms at onset: LARGER AREA OF PAIN BUT LESS FREQUENT AND LESS INTENSE. Worse: R SDLYING, STRESS, POSTURE, PROLONGED USE OF ARMS OVER-HEAD, ICE, HEAT, MASSAGE Better: PRESSURE POINT PUSHING AND MASSAGE, SOMETIMES ICE, PREDNISONE Disturbed sleep: AT TIMES Previous history/Previous treatment: CHIROPRACTIC, MASSAGE, ACCUPUNCTURE, DRY NEEDLING, PHYSICAL THERAPY, 2 SURGERIES NOVEMBER 2021 (FIRST RIB RESECTION AND PEC MINOR RELEASE) AND OCTOBER 03 2023 (SCALENE ECTOMY). PRESCRIPTION MEDICATIONS. PAIN MGMT [facility] WITH H/O CERVICAL PRATIBHA'S, FACET INJECTIONS AND SCALENE INJECTIONS WITH LAST TREATMENT BEING AUG 2023. CONSULTS WITH DR. DYE, DR. SYKES AND PCP DR. MCKOY. HAS ALSO HAD CONSULTS WITH 3 OTHER SPINE DOCTOR'S IN [place] (WITH 2 OR THE 3 SAYING SURGERY COULD BE TRIED BUT THERE WOULD BE NO guarantee IT WOULD HELP HER PAIN). HAS BEEN REFERRED TO FUNCTIONAL MEDICINE AT [facility] BUT HAS NOT MADE DERICK'T YET. Dizziness: NO Tinnitus: NO Nausea: NO Shortness of Breath: NO Difficulty Swollowing: NO Gait: NORMAL Accidents: NO Unexplained weight loss: NO Imaging: MULTIPLE CERVICAL, THORACIC, CHEST AND SHLD X-RAYS. NECK AND SHLD MRI'S. DX'D WITH THROACIC OUTLET SYNDROME AND CERVICAL BULGING DISCS. PMH/Recent major surgery: HTN, L3 BACK SURGERY 1998, FOOT SX R 2017, CATHY KIDNEY SX FOR KIDNEY STONES 2017, UMBILICAL HERNIA REPAIR 2017, BREAST REDUCTION 2017. OTHER: PATIENT REPORTS SHE HAD A 10 LB LIFTING LIMIT IN THE BEGINNING AND ABOUT 3 WKS AFTER SX SHE STARTED LIFTING MORE AND HAS BEEN USING HER R UE UNLIMITED EVER SINCE. SHE REPORTS FULL USE OF HER R UE (90%). SHE STATES THE DOCTOR TOLD HER TO USE IT AND NOT BABY IT. SHE REPORTS SHE DOES NOT HAVE ANY RESTRICTIONS SHE IS AWARE OF. Objective Objective: Sitting Posture/Standing Posture: FH. RSH'S. NO TORTICOLLIS. Active Correction of posture: BETTER. ABLE TO PARTIALLY CORRECT Other Observations: INDEP GAIT AND TRANSFERS Sensory deficit: CATHY UE LIGHT TOUCH SENSATION GROSSLY INTACT AND SYMMETRICAL ROM deficit: CATHY UE AROM WFL ALL PLANE Motor deficit: MMT NT DUE TO CURRENT PHYSICIAN ORDER STATING NO STRENGTHENING. PATIENT IS GOING TO SEE THE SURGEON TODAY FOR FOLLOW UP AFTER PT. Reflexes: 2+ CATHY UE'S. Dural Signs: POSITIVE CATHY UE'S. Cervical Mvmt Loss: Flex: NIL Pro: NIL Ext: MIN Ret: MOD RSB: MIN LSB: MOD R Rot: MOD L Rot: MIN NO C/O INCREASED PAIN OR MUSCLE SPASM WITH CERVICAL ROM TESTING ALL PLANES. Postural strength: FAIR Palpation: MILD TIGHTNESS OF CATHY PEC, TRAP, STERNOCLEIDOMASTOID, AND SCALENE REGION MUSCULATURE WITH PALPATION. PATIENT DENIES TENDERNESS WITH LIGHT PALPATION TODAY. Balance/Special Test Scores Oswestry Neck Score: 16 Goals Goal 1:: DECREASE C/O R NECK AND SHLD PAIN AND SPASMS BY AT LEAST 50% TO EASE ADL AND SLEEP FUNCTION Goal Time Frame: 6-8 Weeks Goal 2:: PATIENT WILL HAVE IMPROVED POSTURE STRENGTH TO GOOD Goal Time Frame: 6-8 Weeks Goal 3:: PATIENT WILL BE INDEP WITH PROPER BODY MECHANICS/ERGONOMICS FOR UPPER BODY Goal Time Frame: 6-8 Weeks Goal 4:: PATIENT WILL HAVE 5/5 STRENGTH R UE WHEN PRE ALLOWED BY SURGEON Goal Time Frame: 6-8 Weeks Goal 5:: INDEP HEP Goal Time Frame: 6-8 Weeks Rehabilitation Potential Physical Therapy Diagnosis: THIS PATIENT PRESENTS TO PT TODAY WITH POSTURAL TIGHTNESS/WEAKNESS, DECREASED CERVICAL ROM, POSITIVE CATHY UE DURAL SIGNS AND C/O R NECK, UPPER TRAP AND SHLD BLADE AREA PAIN. Rehabilitation Potential: Fair Anticipated Interventions Patient/Client Instruction: Educate patient on: Condition, Plan of Care and Risk Factors For the Purpose of:: To improve self management Therapeutic Exercise to Include: Body mechanics, Postural training, Flexibilty training and Relaxation training For the Purpose of:: To decrease pain, To decrease soft tissue restriction and To increase flexibility/ROM Manual Therapy Techniques to Include: Soft tissue mobilization For the Purpose of:: To decrease pain, To decrease soft tissue restriction and To increase flexibility/ROM Text: Thank you for the opportunity to evaluate your patient. For Medicare and Medicare HMO plans, please review the plan of care and approve it. It will need to be FAXED BACK to us at [phone] for Medicare purposes. For Medicare only, by signing this I certify the plan of care. Please let me know if there are questions or concerns regarding this plan of care. Physician Signature: Date:
--- NOTE | 2024-02-10 14:01 | HP.PT.NRP ---
Patient Information Patient Information: DARLENE HELMS was seen in my office for initial evaluation on 11/06/23. The following Plan of Care was established for this patient: POC Established Initial Frequency: 2-3x /Week Initial Duration: 2-4 Months Anticipated Interventions Patient/Client Instruction: Educate patient on: Condition, Plan of Care and Risk Factors For the Purpose of:: To improve self management Therapeutic Exercise to Include: Body mechanics, Postural training, Flexibilty training and Relaxation training For the Purpose of:: To decrease pain, To decrease soft tissue restriction and To increase flexibility/ROM Manual Therapy Techniques to Include: Soft tissue mobilization For the Purpose of:: To decrease pain, To decrease soft tissue restriction and To increase flexibility/ROM Last Seen Last Seen: This patient was last seen in our office 12/11/23. Pertinent comments regarding their Physical therapy will appear below: It has been my pleasure to see this patient for a total of 9 visits. It is my understanding that she cancelled her last scheduled visit due to a in the family. During her episode of care in physical therapy she reported better tolerance of exercise and activities when on prednisone and worse when not. See home ex 's given below. This patient has not been seen in Physical Therapy for more visits since 12/11/23 and is appropriate to return to MD for further follow-up at this point. (Please disregard neck oswestry score below on discharge summary - computer error) 12/15: R SCM STRETCH 12/04: 1X A DAY: SUPINE PROTRACTION 2X10 WITH 1 LB CATHY SUPINE LOOSE PACK IR/ER CATHY SHLD 2X10 WITH 1 LB 12/02: CATHY ANTERIOR AND MIDDLE SCALENE STRETCHING (OPPOSITE HAND ON CHAIR) X 3 SEC EA, 3 TIMES A DAY. 11/27: MODIFIED UT STRETCHING WITH OPPOSITE HAND ON CHAIR SEAT CATHY UE SLEEPER STRETCH SUPINE PROTRACTION WITH ONE POUND WORKING UP TO 3X10 ONCE A DAY. 11/21: MEDIAN, ULNAR AND RADIAL NERVE GLIDES X 10, 3 TIMES A DAY CATHY UT STRETCHING X 3 EA, X 3 , 3 TIMES A DAY DEEP NECK FLEXOR HEAD LIFTS X 3 SEC STARTING WITH 5 REPS ONCE A DAY AND INCREASING BY 1 REP A DAY TO 10 REPS TOLERATED. 11/19: DOORWAY PEC STRETCHING X 3 POSITIONS SUBMAX SUPINE ISO CERVICAL RETRACTION X 10, 5 SEC EA INTERMITTENTLY DURING THE DAY. DIAPHRAGMATIC BREATHING IN SUPINE AT LEAST 5 MIN A DAY AND NEEDED TO TRY TO DECREASE SPASMS. HOLD SEATED CERV RET AND RET/EXT. At this point I will be discontinuing this patient from physical therapy. I would be happy to see this patient again in the future if found appropriate by the physician. Thank you! Belle Stevenson, PT, Cert MDT Balance/Gait/Functional tests Balance/Special Test Scores Oswestry Neck Score: 16
== END 2023-12-16 19:00 | disposition home or self-care (01) ==
LOC: PT 13:30
PROVIDERS: PCP Internal Medicine
DX: G54.0 Brachial plexus disorders (principal)
CPT/HCPCS: 97110; 97140; 97162; 97530

== ENCOUNTER → 2025-01-06 | Outpatient (CLI) | payer MEDICAID, SELFPAY ==
--- NOTE | 2025-01-06 13:49 | US_ITS ---
PROCEDURE: DIAG MAMM W/CAD, BILAT; BILAT BRST JESSICA STAND ALONE; BREAST LIMITED UNILATERAL 01/06/2025 REASON FOR EXAM: 39-year-old female presents with palpable concern in the left breast. History of bilateral breast reduction in 2018. Family history of breast cancer in maternal great grandmother. COMPARISON: Prior exam(s) dated 12/26/2017, 12/23/2017. TECHNIQUE: DIAG MAMM W/CAD, BILAT; BILAT BRST JESSICA STAND ALONE; BREAST LIMITED UNILATERAL FINDINGS: MAMMOGRAM: TISSUE DENSITY: There are scattered areas of fibroglandular density. Left breast: There is a triangle skin marker indicating the area of palpable concern in the upper-outer left breast. Underlying the skin marker are no suspicious mammographic findings. Otherwise, there are no suspicious findings in the left breast. Right breast: There is a focal asymmetry in the lower-outer right breast at posterior depth. The focal asymmetry partially effaces with additional spot compression views. This may represent postsurgical changes from the patient's breast reduction. ULTRASOUND: Left breast: Ultrasound was targeted to the left breast upper-outer. Ultrasound performed of the patient's area of palpable concern in the left breast at 1 o'clock 5 cm from the nipple demonstrates no suspicious sonographic findings. Right breast: Ultrasound was targeted to the lower outer quadrant of the right breast. There are postsurgical changes seen in the lower outer quadrant of the right breast. Otherwise, there are no suspicious sonographic findings. US/Breast Limited Unilateral IMPRESSION: 1. There are no suspicious mammographic or sonographic findings in the area of patient's palpable concern in the left breast. 2. Benign postsurgical changes from bilateral breast reduction. 3. There is no evidence of malignancy in either breast. OVERALL FINAL ASSESSMENT BI-RADS 2: BENIGN RECOMMEND ANNUAL MAMMOGRAPHIC SCREENING. RECOMMENDATION: Routine annual follow-up in 1 Year A letter with findings and recommendations will be mailed to the patient. Reading Location: [id number]
== END | disposition home or self-care (01) ==
PROVIDERS: PCP Family Medicine; Referring Provider Nurse Practitioner Women's Health; Visit Provider Nurse Practitioner Women's Health
DX: N63.21 Unspecified lump in the left breast, upper outer quadrant (principal); R92.8 Other abnormal and inconclusive findings on diagnostic imaging of breast
CPT/HCPCS: 77062; 76642; 77066; G0279

== ENCOUNTER 2025-04-25 15:57 | Observation (INO) | payer MEDICAID, SELFPAY ==
[2025-04-25] VITALS (13 sets, daily range): BP systolic 115–146; BP diastolic 65–95; PULSE 78–97; RESP 15–18; TEMP 36.4–37.1; O2SAT 94–100; BMI 31.1; BMI 33.3
[2025-04-25 16:52] LABS: Mucous, Urine 0 SEEN /hpf (<or=2+); Red Blood Cells-Urine 0 SEEN /hpf (0-5)
[2025-04-25 16:55] LABS: Hematocrit 40.7 % (37-47); Hemoglobin 13.5 g/dL (12.0-15.0); Immature Granulocytes Count 0.040 X10^3/uL (0.0-0.0); Mean Corp Hgb Conc 33.2 g/dL (32-36); Mean Corpuscular Volume 96.0 fL (81-99); Mean Platelet Vol. 10.9 fl (6.2-12.0); NRBC Flagged by Analyzer 0 % (0-5); Platelet Count 273 K/mm3 (150-450); RBC Distribution Width CV 12.6 % (11.6-14.6); RBC Distribution Width SD 44.6 fl (35.1-43.9); Red Blood Count 4.24 M/mm3 (4.2-5.4); White Blood Count 10.8 K/mm3 (4.4-11.0)
[2025-04-25 16:56] LABS: Color, Urine Yellow (Yellow); Glucose, Dipstick Normal (Normal); Ketone-Dipstick Negative (Negative); Leukocyte Esterase-Dipstick 100 /ul (Negative); Nitrite-Dipstick Negative (Negative); Occult Blood-Urine Negative /ul (Negative); Protein-Dipstick Negative (Negative); Specific Gravity, Urine 1.005 (1.002-1.030); Urine Bilirubin Dipstick Negative (Negative)
[2025-04-25 17:04] LABS: Internal QC Validated? YES +Cl - CLEAR BKGD; Pregnancy, Serum, hCG Quali. NEGATIVE Negative; Record Kit Lot#, Serum Preg. 0000980607
[2025-04-25 17:16] LABS: Squamous Epithelial Cells - UA 0-5 SEEN /hpf (5-10)
--- NOTE | 2025-04-25 17:20 | EDS_ITS ---
HPI HPI - GI History of Present Illness Chief Complaint: Abd Pain Abdominal Pain/Flank Pain Onset: Yesterday Context: Gradual Onset Timing: Continuous Quality: Stabbing Location: RLQ Worsened by: Movement Relieved by: Remaining Still Nausea/Vomiting/Emesis GI Symptom: Negative for Nausea or Vomiting Diarrhea/Melena/Hematochezia GI Symptom: Negative for Diarrhea, Melena or Hematochezia Associated Symptoms Associated Symptoms: Negative for Dysuria, Frequency or Hematuria Narrative Narrative: Patient presents with abdominal pain that began yesterday. Patient states it is gradually getting worse. Patient states it is constant. Patient describes her pain as stabbing. Patient states her pain is mainly over the right lower abdomen. Patient states her pain is worse with any movement. Patient states it is better when she is able to remain still. Patient denies any nausea or vomiting. Patient denies any diarrhea, melena, or hematochezia. Patient denies any dysuria, frequency, or hematuria. Patient states her last meal was approximately noon today. Patient admits to a mild decrease in appetite. PFSH PFS Medical History Thoracic outlet syndrome Acute pharyngitis, unspecified Contact with and (suspected) exposure to other viral communicable diseases URI (upper respiratory infection) Menstrual abnormality Elevated random blood glucose level Chronic neck pain Hernia History of nephrolithotomy with removal of calculi Kidney stones Hypertension Gastrointestinal problem Bone fracture Back problem Home Medications ?Medication ?Instructions ?Recorded ?Last Taken ?Type aleve PO PRN 05/18/22 Unknown Hist ory tylenol PO PRN 05/18/22 Unknown Hist ory lisinopril 10 mg tablet 10 mg PO DAILY #90 tabs 02/03 Unknown Rx diclofenac sodium 100 mg 100 mg PO QDAY 01/14/25 Unkn own History tablet,extended release 24 hr cyclobenzaprine 10 mg tablet 10 mg PO TID PRN 04/25/25 Unknown History Allergy/AdvReac Type Severity Reaction Status Date / Time gabapentin AdvReac Intermediate Nausea/Vom/ Verified 04/25/25 16:00 Diarrhea Family History Other Anxiety Depression Hypertension Myocardial infarction Surgical History History of neck surgery Previous back surgery H/O resection of rib Hx of breast reduction, elective Status post right foot surgery History of surgical procedure on mouth History of placement of ear tubes History of tonsillectomy H/O adenoidectomy Social History adopted: No household members: spouse housing: house current occupational status: unemployed history of recent travel: No sexually active: Yes Smoking Status: Never smoker alcohol intake: never substance use type: does not use what type of physical activity do you participate in: none 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 seatbelt use: always do you feel safe at home: Yes ROS ROS ED Constitutional Constitutional ED: Denies chills or fever(s) Eyes Eyes: Denies blurry vision or change in vision ENT ENT ED: Denies rhinorrhea or sore throat Cardiovascular Cardiovascular: Denies chest pain or palpitations Respiratory/Chest Respiratory/Chest: Denies cough or dyspnea Gastrointestinal Gastrointestinal: Reports abdominal pain; Denies nausea or vomiting Genitourinary Genitourinary ED: Denies dysuria or hematuria Musculoskeletal Musculoskeletal: Reports neck pain; Denies back pain Integumentary Denies abscess or rash Neurologic Neurologic: Denies headache(s) or weakness Allergic/Immunologic Allergic/Immunologic ED: Denies mouth swelling or urticaria EXAM Physical Exam Const Vital Signs: 04/25/25 15:57 04/25/25 17:53 04/25/25 19:00 Temperature 97.9 F 98.7 F Temperature Source Oral Oral Pulse Rate 88 88 86 Respiratory Rate 16 16 15 Blood Pressure 118/81 H 146/95 H 118/87 H Blood Pressure Mean 93 112 97 Pulse Ox 95 99 100 Oxygen Delivery Method Room Air Room Air Room Air Positive well nourished and well developed Constitutional Narrative: BMI is 31.1. General Appearance ED: well developed and NAD HEENT Reports moist mucous membranes normocephalic and atraumatic Neck supple and no JVD Resp normal respiratory effort and clear to auscultation bilaterally Cardio regular rate and regular rhythm GI non-distended Palpation: soft, tender RLQ, McBurney's point, suprapubic and Rovsing's sign and rebound tenderness present; Negative for guarding Extremity full ROM Neuro CN's II-XII intact bilaterally, moves all extremities and no sensory deficits noted Sensorium / Orientation: alert Motor Exam: strength 5/5 throughout Psych mental status grossly normal and thought process normal MDM MDM MDM Narrative Medical decision making narrative: Differential diagnosis includes appendicitis, ovarian cyst, pyelonephritis, ureteral calculus, urinary tract infection, colitis, diverticulitis, ectopic , and viral illness. CBC will be obtained to assess for leukocytosis and anemia. Comprehensive metabolic profile will be obtained to assess for hepatic function, renal function, and electrolyte abnormality. Lipase will be obtained to assess for pancreatitis. Serum hCG will be obtained to assess for . Urinalysis will be obtained to assess for urinary tract infection and hematuria. Lab Data Attestation: I reviewed the patient's lab results. Lab results narrative: CBC was reviewed and was essentially within normal limits. Comprehensive metabolic profile was reviewed and was within normal limits. Lipase was reviewed and was normal at 28. Serum hCG was reviewed and was negative. Urinalysis was reviewed. Leukocyte esterase was 100. There are 0-5 white blood cells and 0-5 epithelial cells. There is rare bacteria. Labs: Laboratory Results - last 24 hr 04/25/25 04/25/25 16:15 16:45 WBC 10.8 RBC 4.24 Hgb 13.5 Hct 40.7 MCV 96.0 MCH 31.8 MCHC 33.2 RDW Std Deviation 44.6 H RDW Coeff of Jeff 12.6 Plt Count 273 MPV 10.9 Immature Gran % (Auto) 0.400 Neut % (Auto) 71.7 H Lymph % (Auto) 15.8 L [place] % (Auto) 10.5 H Eos % (Auto) 1.3 Baso % (Auto) 0.3 Absolute Neuts (auto) 7.8 H Absolute Lymphs (auto) 1.71 Nucleated RBC % 0 Sodium 139 Potassium 4.0 Chloride 105 Carbon Dioxide 23.1 Anion Gap 11 BUN 14 Creatinine 0.81 Estim Creat Clear Calc 88.77 Est GFR (MDRD) Non-Af 94 BUN/Creatinine Ratio 17.3 Glucose 98 Calcium 9.0 Total Bilirubin 0.35 AST 29 ALT 22 Alkaline Phosphatase 63 Total Protein 7.0 Albumin 4.2 Globulin 2.8 Albumin/Globulin Ratio 1.5 Lipase 28 Serum , Qual NEGATIVE Urine Color Yellow Urine Clarity Clear Urine pH 7.0 Ur Specific [place] 1.005 Urine Protein Negative Urine Glucose (UA) Normal Urine Ketones Negative Urine Occult Blood Negative Urine Nitrite Negative Urine Bilirubin Negative Urine Urobilinogen Normal Ur Leukocyte Esterase 100 H Urine RBC 0 SEEN Urine WBC 0-5 SEEN Ur Squamous Epith Cells 0-5 SEEN Urine Bacteria RARE Urine Mucus 0 SEEN Radiography Diagnostic Testing: Clinical Impression(s) from Imaging Studies Abdomen/Pelvis CT 04/25/25 18:52 IMPRESSION: 1. Mucosal thickening in the appendix with surrounding inflammation. Appendix measures 1.0 cm in diameter. Findings are consistent with acute appendicitis. No rupture. 2. Hepatomegaly with fatty infiltration. 3. Fecal retention in the colon consistent with constipation. 4. Bilateral nephrolithiasis without hydronephrosis. Red Alert: Acute appendicitis The critical findings in the findings and impression above were relayed directly by me by telephone to Major Martin on 04/25/2025 at 7:30 pm with readback verification. Reading Location: [facility] CT scan of the abdomen and pelvis was obtained. There is mucosal thickening of the appendix with surrounding inflammation. The appendix measures 1 cm in diameter. There is no evidence of perforation or abscess. There is fecal retention in the colon consistent with constipation. This was interpreted by the radiologist and was also independently reviewed by myself. Treatment and Re-Evaluation :: Patient was given IV fluids, morphine, and Zofran. Due to her IV contrast allergy, patient was given Benadryl and Solu-Medrol. Patient was advised of her findings. Patient was given a dose of Zosyn. Patient was given an injection of Toradol as well. Case was discussed with Dr. Valdez. He was in to evaluate the patient. He will take the patient to the OR. Patient and understood and were agreeable with the plan. All questions were answered. Discharge Plan Dx/Rx/DC Orders Clinical Impression: Acute appendicitis, Right lower quadrant abdominal pain Disposition Disposition: Acute Care [facility]
[2025-04-25] MEDS: 0.9% Normal Saline (1000mL) 1,000 ML 999 ML IV (17:28)
[2025-04-25 17:35] LABS: AST(SGOT) 29 U/L (<=31); Alanine Aminotransfer ALT/SGPT 22 U/L (<=34); Albumin, Serum 4.2 g/dL (3.5-5.0); Alkaline Phosphatase 63 U/L (35-104); Anion Gap 11 (5-15); BUN 14 mg/dL (4-19); BUN/Creat Ratio 17.3 RATIO (10-20); Calcium,Total 9.0 mg/dL (7.6-11.0); Carbon Dioxide 23.1 mmol/L (21.0-32.0); Chloride 105 mmol/L (98-108); Estimated Creatinine Clearance 88.77 ml/min (50-250); Globulin 2.8 g/dL (2.2-4.2); Glucose 98 mg/dL (70-99); Lipase 28 U/L (13-75); Potassium 4.0 mmol/L (3.3-5.1)
[2025-04-25] MEDS: DiphenhydrAMINE 50 MG/ML Syringe 25 MG IV (17:41)
--- NOTE | 2025-04-25 18:52 | CT_ITS ---
EXAM: CT Abdomen and Pelvis With Intravenous Contrast CLINICAL INDICATION: ABDOMINAL PAIN TECHNIQUE: Axial computed tomography images of the abdomen and pelvis with intravenous contrast. This CT exam was performed using one or more of the following dose reduction techniques: automated exposure control, adjustment of the mA and/or kV according to patient size, and/or use of iterative reconstruction technique. COMPARISON: No relevant prior studies available. FINDINGS: LUNG BASES: Unremarkable. No mass. No consolidation. ABDOMEN: LIVER: Hepatomegaly with fatty infiltration. GALLBLADDER AND BILE DUCTS: Unremarkable. No calcified stones. No ductal dilation. PANCREAS: Unremarkable. No mass. No ductal dilation. SPLEEN: Unremarkable. No splenomegaly. ADRENALS: Unremarkable. No mass. KIDNEYS AND URETERS: Multiple bilateral renal pelvic calculi, largest measuring up to 4 mm without obstruction. STOMACH AND BOWEL: Fecal retention in the colon consistent with constipation. No obstruction. No mucosal thickening. PELVIS: APPENDIX: Mucosal thickening in the appendix with surrounding inflammation. Appendix measures 1.0 cm in diameter. BLADDER: Unremarkable. No mass. REPRODUCTIVE: Unremarkable as visualized. ABDOMEN and PELVIS: INTRAPERITONEAL SPACE: Unremarkable. No free air. No significant fluid collection. BONES/JOINTS: No acute fracture. No dislocation. SOFT TISSUES: Unremarkable. VASCULATURE: Unremarkable. No abdominal aortic aneurysm. LYMPH NODES: Unremarkable. No enlarged lymph nodes. CT/Abdomen/Pelvis W IV Cont ONLY IMPRESSION: 1. Mucosal thickening in the appendix with surrounding inflammation. Appendix measures 1.0 cm in diameter. Findings are consistent with acute appendicitis. No rupture. 2. Hepatomegaly with fatty infiltration. 3. Fecal retention in the colon consistent with constipation. 4. Bilateral nephrolithiasis without hydronephrosis. Red Alert: Acute appendicitis The critical findings in the findings and impression above were relayed directl y by me by telephone to Major Martin on 04/25/2025 at 7:30 pm with readback verification. Reading Location: [id number]
[2025-04-25] MEDS: Piperacil/Tazobactam 4.5 GM in 0.9% Normal Saline (100mL MB+) 100 ML IV (19:49)
--- NOTE | 2025-04-25 20:09 | PCM.HP.STD ---
HPI - General General Date of Admission: 04/25/25 HPI Narrative DARLENE HELMS, is a 39 F who presents to [facility] due to complaints of acute onset abdominal pain that began approximately noon time yesterday. Patient states the distribution of her pain was largely about her umbilicus and then completely remitted only to return in the right lower quadrant upon awakening this morning. She denies any associated nausea or chills. Fever has not been recorded. She denies any change to her bowel or urinary habits. She denies any sick contacts. ER workup notable for CBC with normal WBC at 10.8. CT imaging of the abdomen pelvis was performed and shows evidence of acute uncomplicated appendicitis with appendiceal diameter of 1.0 cm. Patient's past medical history inclusive of a diagnosis of hypertension, thoracic outlet syndrome status post first rib resection, umbilical hernia status post repair with mesh. [facility] Medical History Thoracic outlet syndrome Acute pharyngitis, unspecified Contact with and (suspected) exposure to other viral communicable diseases URI (upper respiratory infection) Menstrual abnormality Elevated random blood glucose level Chronic neck pain Hernia History of nephrolithotomy with removal of calculi Kidney stones Hypertension Gastrointestinal problem Bone fracture Back problem Home Medications ?Medication ?Instructions ?Recorded ?Last Taken ?Type aleve PO PRN 05/18/22 Unknown History tylenol PO PRN 05/18/22 Unknown History lisinopril 10 mg tablet 10 mg PO DAILY #90 tabs 05/21/23 Unknown Rx diclofenac sodium 100 mg 100 mg PO QDAY 01/14/25 Unknown History tablet,extended release 24 hr cyclobenzaprine 10 mg tablet 10 mg PO TID PRN 04/25/25 Unknown History Allergy/AdvReac Type Severity Reaction Status Date / Time gabapentin AdvReac Intermediate Nausea/Vom/ Verified 04/25/25 16:00 Diarrhea Family History Other Anxiety Depression Hypertension Myocardial infarction Surgical History History of neck surgery Previous back surgery H/O resection of rib Hx of breast reduction, elective Status post right foot surgery History of surgical procedure on mouth History of placement of ear tubes History of tonsillectomy H/O adenoidectomy Social History adopted: No household members: spouse housing: house current occupational status: unemployed history of recent travel: No sexually active: Yes Smoking Status: Never smoker alcohol intake: never substance use type: does not use what type of physical activity do you participate in: none sachi/restorationist: Tenriism seatbelt use: always do you feel safe at home: Yes Vital Signs Vital Signs Vital Signs: 04/25/25 15:57 04/25/25 17:53 04/25/25 19:00 Temperature 97.9 F 98.7 F Temperature Source Oral Oral Pulse Rate 88 88 86 Respiratory Rate 16 16 15 Blood Pressure 118/81 H 146/95 H 118/87 H Blood Pressure Mean 93 112 97 Pulse Ox 95 99 100 Oxygen Delivery Method Room Air Room Air Room Air Weight Weight: 170 lb Body Mass Index (BMI) 31.1 Physical Exam Const alert, oriented x3, no apparent distress and well nourished Resp normal respiratory effort GI GI Narrative: Mildly distended, soft, tender to palpation in right lower quadrant over McBurney's point. Well-healed scar at center of the umbilicus. Results Lab / Micro Data 04/25/25 16:15 04/25/25 16:15 Labs: Laboratory Results - last 24 hr 04/25/25 16:15: WBC 10.8, RBC 4.24, Hgb 13.5, Hct 40.7, MCV 96.0, MCH 31.8, MCHC 33.2, RDW Std Deviation 44.6 H, RDW Coeff of Jeff 12.6, Plt Count 273, MPV 10.9, Immature Gran % (Auto) 0.400, Neut % (Auto) 71.7 H, Lymph % (Auto) 15.8 L, [place] % (Auto) 10.5 H, Eos % (Auto) 1.3, Baso % (Auto) 0.3, Absolute Neuts (auto) 7.8 H, Absolute Lymphs (auto) 1.71, Nucleated RBC % 0, Sodium 139, Potassium 4.0, Chloride 105, Carbon Dioxide 23.1, Anion Gap 11, BUN 14, Creatinine 0.81, Estim Creat Clear Calc 88.77, Est GFR (MDRD) Non-Af 94, BUN/Creatinine Ratio 17.3, Glucose 98, Calcium 9.0, Total Bilirubin 0.35, AST 29, ALT 22, Alkaline Phosphatase 63, Total Protein 7.0, Albumin 4.2, Globulin 2.8, Albumin/Globulin Ratio 1.5, Lipase 28, Serum , Qual NEGATIVE 04/25/25 16:45: Urine Color Yellow, Urine Clarity Clear, Urine pH 7.0, Ur Specific [place] 1.005, Urine Protein Negative, Urine Glucose (UA) Normal, Urine Ketones Negative, Urine Occult Blood Negative, Urine Nitrite Negative, Urine Bilirubin Negative, Urine Urobilinogen Normal, Ur Leukocyte Esterase 100 H, Urine RBC 0 SEEN, Urine WBC 0-5 SEEN, Ur Squamous Epith Cells 0-5 SEEN, Urine Bacteria RARE, Urine Mucus 0 SEEN Imaging Radiology Impression Abdomen/Pelvis CT 04/25/25 18:52 IMPRESSION: 1. Mucosal thickening in the appendix with surrounding inflammation. Appendix measures 1.0 cm in diameter. Findings are consistent with acute appendicitis. No rupture. 2. Hepatomegaly with fatty infiltration. 3. Fecal retention in the colon consistent with constipation. 4. Bilateral nephrolithiasis without hydronephrosis. Red Alert: Acute appendicitis The critical findings in the findings and impression above were relayed directly by me by telephone to Major Martin on 04/25/2025 at 7:30 pm with readback verification. Reading Location: [facility] Assessment & Plan Assessment/Plan (1) Acute appendicitis: PLAN: Patient is a 39-year-old female who presents with approximately 32-hour history of acute onset abdominal pain that began with periumbilical distribution but has become little localized in the right lower quadrant. No associated symptoms. CT imaging is confirmatory. Follow-up abdominal exam is consistent. I thus recommended proceeding for surgical appendectomy. Laparoscopic appendectomy was described in detail including procedural steps as well as expected recovery. Patient and her wish to proceed as described. Last p.o. intake was noon today. Given the late hour we will plan to admit patient to observational stay following the operation. Call team and anesthesia been notified. Antibiotics were dosed empirically by emergency medicine. Consents to be collected. Eliseo Boudreaux MD General Surgery Endocrine Surgery Pager: [facility] [address] [place] [address], [facility], [address] [place] [address] Office: [phone] Charges/Coding Visit Charges Inpatient E&M: 54773 Init Hosp L2
--- NOTE | 2025-04-25 20:09 | PCM.HP.STD ---
HPI - General General Date of Admission: 04/25/25 HPI Narrative DARLENE HELMS, is a 39 F who presents to [facility] due to complaints of acute onset abdominal pain that began approximately noon time yesterday. Patient states the distribution of her pain was largely about her umbilicus and then completely remitted only to return in the right lower quadrant upon awakening this morning. She denies any associated nausea or chills. Fever has not been recorded. She denies any change to her bowel or urinary habits. She denies any sick contacts. ER workup notable for CBC with normal WBC at 10.8. CT imaging of the abdomen pelvis was performed and shows evidence of acute uncomplicated appendicitis with appendiceal diameter of 1.0 cm. Patient's past medical history inclusive of a diagnosis of hypertension, thoracic outlet syndrome status post first rib resection, umbilical hernia status post repair with mesh. [facility] Medical History Thoracic outlet syndrome Acute pharyngitis, unspecified Contact with and (suspected) exposure to other viral communicable diseases URI (upper respiratory infection) Menstrual abnormality Elevated random blood glucose level Chronic neck pain Hernia History of nephrolithotomy with removal of calculi Kidney stones Hypertension Gastrointestinal problem Bone fracture Back problem Home Medications ?Medication ?Instructions ?Recorded ?Last Taken ?Type aleve PO PRN 05/18/22 Unknown History tylenol PO PRN 05/18/22 Unknown History lisinopril 10 mg tablet 10 mg PO DAILY #90 tabs 05/21/23 Unknown Rx diclofenac sodium 100 mg 100 mg PO QDAY 01/14/25 Unknown History tablet,extended release 24 hr cyclobenzaprine 10 mg tablet 10 mg PO TID PRN 04/25/25 Unknown History Allergy/AdvReac Type Severity Reaction Status Date / Time gabapentin AdvReac Intermediate Nausea/Vom/ Verified 04/25/25 16:00 Diarrhea Family History Other Anxiety Depression Hypertension Myocardial infarction Surgical History History of neck surgery Previous back surgery H/O resection of rib Hx of breast reduction, elective Status post right foot surgery History of surgical procedure on mouth History of placement of ear tubes History of tonsillectomy H/O adenoidectomy Social History adopted: No household members: spouse housing: house current occupational status: unemployed history of recent travel: No sexually active: Yes Smoking Status: Never smoker alcohol intake: never substance use type: does not use what type of physical activity do you participate in: none sachi/voodoo: Faith seatbelt use: always do you feel safe at home: Yes Vital Signs Vital Signs Vital Signs: 04/25/25 15:57 04/25/25 17:53 04/25/25 19:00 Temperature 97.9 F 98.7 F Temperature Source Oral Oral Pulse Rate 88 88 86 Respiratory Rate 16 16 15 Blood Pressure 118/81 H 146/95 H 118/87 H Blood Pressure Mean 93 112 97 Pulse Ox 95 99 100 Oxygen Delivery Method Room Air Room Air Room Air Weight Weight: 170 lb Body Mass Index (BMI) 31.1 Physical Exam Const alert, oriented x3, no apparent distress and well nourished Resp normal respiratory effort GI GI Narrative: Mildly distended, soft, tender to palpation in right lower quadrant over McBurney's point. Well-healed scar at center of the umbilicus. Results Lab / Micro Data 04/25/25 16:15 04/25/25 16:15 Labs: Laboratory Results - last 24 hr 04/25/25 16:15: WBC 10.8, RBC 4.24, Hgb 13.5, Hct 40.7, MCV 96.0, MCH 31.8, MCHC 33.2, RDW Std Deviation 44.6 H, RDW Coeff of Jeff 12.6, Plt Count 273, MPV 10.9, Immature Gran % (Auto) 0.400, Neut % (Auto) 71.7 H, Lymph % (Auto) 15.8 L, [place] % (Auto) 10.5 H, Eos % (Auto) 1.3, Baso % (Auto) 0.3, Absolute Neuts (auto) 7.8 H, Absolute Lymphs (auto) 1.71, Nucleated RBC % 0, Sodium 139, Potassium 4.0, Chloride 105, Carbon Dioxide 23.1, Anion Gap 11, BUN 14, Creatinine 0.81, Estim Creat Clear Calc 88.77, Est GFR (MDRD) Non-Af 94, BUN/Creatinine Ratio 17.3, Glucose 98, Calcium 9.0, Total Bilirubin 0.35, AST 29, ALT 22, Alkaline Phosphatase 63, Total Protein 7.0, Albumin 4.2, Globulin 2.8, Albumin/Globulin Ratio 1.5, Lipase 28, Serum , Qual NEGATIVE 04/25/25 16:45: Urine Color Yellow, Urine Clarity Clear, Urine pH 7.0, Ur Specific [place] 1.005, Urine Protein Negative, Urine Glucose (UA) Normal, Urine Ketones Negative, Urine Occult Blood Negative, Urine Nitrite Negative, Urine Bilirubin Negative, Urine Urobilinogen Normal, Ur Leukocyte Esterase 100 H, Urine RBC 0 SEEN, Urine WBC 0-5 SEEN, Ur Squamous Epith Cells 0-5 SEEN, Urine Bacteria RARE, Urine Mucus 0 SEEN Imaging Radiology Impression Abdomen/Pelvis CT 04/25/25 18:52 IMPRESSION: 1. Mucosal thickening in the appendix with surrounding inflammation. Appendix measures 1.0 cm in diameter. Findings are consistent with acute appendicitis. No rupture. 2. Hepatomegaly with fatty infiltration. 3. Fecal retention in the colon consistent with constipation. 4. Bilateral nephrolithiasis without hydronephrosis. Red Alert: Acute appendicitis The critical findings in the findings and impression above were relayed directly by me by telephone to Major Martin on 04/25/2025 at 7:30 pm with readback verification. Reading Location: [facility] Assessment & Plan Assessment/Plan (1) Acute appendicitis: PLAN: Patient is a 39-year-old female who presents with approximately 32-hour history of acute onset abdominal pain that began with periumbilical distribution but has become little localized in the right lower quadrant. No associated symptoms. CT imaging is confirmatory. Follow-up abdominal exam is consistent. I thus recommended proceeding for surgical appendectomy. Laparoscopic appendectomy was described in detail including procedural steps as well as expected recovery. Patient and her wish to proceed as described. Last p.o. intake was noon today. Given the late hour we will plan to admit patient to observational stay following the operation. Call team and anesthesia been notified. Antibiotics were dosed empirically by emergency medicine. Consents to be collected. Eliseo Boudreaux MD General Surgery Endocrine Surgery Pager: [facility] [address] [place] [address], [facility], [address] [place] [address] Office: [phone] Charges/Coding Visit Charges Inpatient E&M: 01574 Init Hosp L2
--- NOTE | 2025-04-25 21:31 | PRE.ANES_ITS ---
ASA Classification* ASA Classification ASA Classification: 2 and E Assessment & Plan Anesthesia* Anesthesia Assessment Anesthesia Assessment: Discussed sedation and/or anesthesia options, risks, benefits, and alternatives with patient/parents/legal guardian/POA. Questions invited. The patient/parents/legal guardian/POA seems to understand and agrees to proceed with anesthesia plan. Reviewed the physical assessment, medical history, allergy history and patient home medications list prior to surgery/procedure/anesthetic and documented any changes. Performed airway and anesthesia risk assessments. Anesthesia Type Anesthesia Type: General Anesthesia Focused Assessment* Temperature: 98.6 F Pulse Rate: 85 Blood Pressure: 142/86 Respiratory Rate: 16 Pulse Ox: 98 Oxygen Delivery Method: Room Air Airway Assessment Mouth opens: >3 cm Mallampati Score: III Teeth Condition: Intact Neck Range of motion (ROM): Full ROM Comment: Short thyromental to Labs Anesthesia Preop lab: CBC WBC, (4.4-11.0) 10.8 K/mm3 Today, 16:15 RBC, (4.2-5.4) 4.24 M/mm3 Today, 16:15 Hgb, (12.0-15.0) 13.5 g/dL Today, 16:15 Hct, (37-47) 40.7 % Today, 16:15 Plt Count, (150-450) 273 K/mm3 Today, 16:15 CHEMISTRY Potassium, (3.3-5.1) 4.0 mmol/L Today, 16:15 Sodium, (133-145) 139 mmol/L Today, 16:15 BUN, (4-19) 14 mg/dL Today, 16:15 Creatinine, (0.70-1.20) 0.81 mg/dL Today, 16:15 Glucose, (70-99) 98 mg/dL Today, 16:15 TSH, (0.358-3.74) 1.45 uIU/mL 08/22/23, 12:05 COAG Pre-Assessment Diagnosis/Proposed Procedure Planned Operative Procedure(s): Laparoscopic appendectomy Anesthesia History Anesthesia History - ice cutter: Anesthesia History - ice cutter Hx Hospitalization Any Problems With Anesthesia No 04/25/25 20:23 Cholinesterase deficiency No 04/25/25 20:23 You/Your Family Experience No 04/25/25 20:23 fever (hyperthermia) with Relationship Recent Exposure to Contagious No 04/25/25 20:23 Disease Does patient have nerve No 04/25/25 20:23 stimulator Patient instructed to have No 04/25/25 20:23 device shut off --Does patient have Pacemaker or ICD? When Was Last Pacemaker Check QUESTION #4 FULL TEXT: You/Your Family Experience fever (hyperthermia) with Anesthesia Last Oral Intake Last Oral intake: Last Oral Intake NPO since Meds taken in AM with sips of water? Meds patient instructed to take am of surgery Any additional information?: Yes NPO since: 03:30 (Patient water at 3:30 PM) Meds taken in AM with sips of water?: Yes Meds patient instructed to take am of surgery: Cyclobenzaprine, acetaminophen PONV PONV - ice cutter: PONV - ice cutter Female HX of Motion Sickness HX of N/V After Surgery Non-Smoker Duration of Surgery greater than 60 minutes Number of Risk Factors PONV Score Height & Weight Height & Weight: Anesthesia: Height & Weight Height 5 ft 2 in 04/25/25 20:23 Weight: 77.111 kg 04/25/25 20:23 Body Mass Index (BMI) 31.1 04/25/25 20:23 Respiratory Assessment Respiratory Assessment - ice cutter: Respiratory Tract Infection Hx - ice cutter Hx Respiratory Tract Infection No 04/25/25 20:23 STOP Sleep Apnea STOP Sleep Apnea - ice cutter: STOP Sleep Apnea - ice cutter Hx Hypertension Yes 04/25/25 20:23 Hx Sleep Apnea No 04/25/25 20:23 CPAP BIPAP Do you snore loudly (louder No 04/25/25 20:23 than talking or can be heard Do you often feel tired/ Yes 04/25/25 20:23 fatigued/ sleepy during daytime? Has anyone observed you stop No 04/25/25 20:23 breathing during sleep? STOP Results Positive 04/25/25 20:23 QUESTION #5 FULL TEXT : Do you snore loudly (louder than talking or can be heard through closed doors)? Tobacco Use History Tobacco Use History - ice cutter: Tobacco Use History - ice cutter Tobacco Use Smoking Status Never smoker 04/25/25 16:07 Hx Tobacco Use Years Smoking Packs Smoked per Day Smoking Cessation Date was within the last 15 years Hx Smoking Cessation Date Hx Smoking Cessation Counseling Hematologic Medial History Hematologic Hx - ice cutter: Hematologic Medical Hx - jewelry cutter Hx of Blood Transfusion Hx of Transfusion in last 3 Months Date of Last Transfusion (if within last 3 months) Ever experience any problems with transfusion(s)? Specify any problems Hx of Preganancy in last 3 Months Nurse Filling Out Transfusion & Questions: Date: Time: Patient unable to answer at this time (ie. confused, unrespo /Reproduction History /Reproductive History - ice cutter: /Reproductive Hx- ice cutter Hx Now No 04/25/25 20:23 Gestational Age (in weeks): EDC: Hx Hx Para Hx Section SAB No 04/25/25 20:23 PFS Medical History Thoracic outlet syndrome Acute pharyngitis, unspecified Contact with and (suspected) exposure to other viral communicable diseases URI (upper respiratory infection) Menstrual abnormality Elevated random blood glucose level Chronic neck pain Hernia History of nephrolithotomy with removal of calculi Kidney stones Hypertension Gastrointestinal problem Bone fracture Back problem Home Medications ?Medication ?Instructions ?Recorded ?Last Taken ?Type aleve PO PRN 05/18/22 Unknown Hist ory tylenol PO PRN pain 05/18/22 5 History lisinopril 10 mg tablet 10 mg PO DAILY #90 tabs 02/03 Unknown Rx diclofenac sodium 100 mg 100 mg PO QDAY 01/14/25 Unkn own History tablet,extended release 24 hr cyclobenzaprine 10 mg tablet 10 mg PO TID PRN 04/25/25 04/25/25 History Allergy/AdvReac Type Severity Reaction Status Date / Time gabapentin AdvReac Intermediate Nausea/Vom/ Verified 04/25/25 16:00 Diarrhea Family History Other Anxiety Depression Hypertension Myocardial infarction Surgical History History of neck surgery Previous back surgery H/O resection of rib Hx of breast reduction, elective Status post right foot surgery History of surgical procedure on mouth History of placement of ear tubes History of tonsillectomy H/O adenoidectomy Social History adopted: No household members: spouse housing: house current occupational status: unemployed history of recent travel: No sexually active: Yes Smoking Status: Never smoker alcohol intake: never substance use type: does not use what type of physical activity do you participate in: none sachi/nondenominational: Yazdanism seatbelt use: always do you feel safe at home: Yes Review of Systems (Anesthesia) ROS Narrative System reviewed and no additional complaints, except as documented.
--- NOTE | 2025-04-25 21:31 | PRE.ANES_ITS ---
ASA Classification* ASA Classification ASA Classification: 2 and E Assessment & Plan Anesthesia* Anesthesia Assessment Anesthesia Assessment: Discussed sedation and/or anesthesia options, risks, benefits, and alternatives with patient/parents/legal guardian/POA. Questions invited. The patient/parents/legal guardian/POA seems to understand and agrees to proceed with anesthesia plan. Reviewed the physical assessment, medical history, allergy history and patient home medications list prior to surgery/procedure/anesthetic and documented any changes. Performed airway and anesthesia risk assessments. Anesthesia Type Anesthesia Type: General Anesthesia Focused Assessment* Temperature: 98.6 F Pulse Rate: 85 Blood Pressure: 142/86 Respiratory Rate: 16 Pulse Ox: 98 Oxygen Delivery Method: Room Air Airway Assessment Mouth opens: >3 cm Mallampati Score: III Teeth Condition: Intact Neck Range of motion (ROM): Full ROM Comment: Short thyromental to Labs Anesthesia Preop lab: CBC WBC, (4.4-11.0) 10.8 K/mm3 Today, 16:15 RBC, (4.2-5.4) 4.24 M/mm3 Today, 16:15 Hgb, (12.0-15.0) 13.5 g/dL Today, 16:15 Hct, (37-47) 40.7 % Today, 16:15 Plt Count, (150-450) 273 K/mm3 Today, 16:15 CHEMISTRY Potassium, (3.3-5.1) 4.0 mmol/L Today, 16:15 Sodium, (133-145) 139 mmol/L Today, 16:15 BUN, (4-19) 14 mg/dL Today, 16:15 Creatinine, (0.70-1.20) 0.81 mg/dL Today, 16:15 Glucose, (70-99) 98 mg/dL Today, 16:15 TSH, (0.358-3.74) 1.45 uIU/mL 08/22/23, 12:05 COAG Pre-Assessment Diagnosis/Proposed Procedure Planned Operative Procedure(s): Laparoscopic appendectomy Anesthesia History Anesthesia History - cytogenetics technologist: Anesthesia History - cytogenetics technologist Hx Hospitalization Any Problems With Anesthesia No 04/25/25 20:23 Cholinesterase deficiency No 04/25/25 20:23 You/Your Family Experience No 04/25/25 20:23 fever (hyperthermia) with Relationship Recent Exposure to Contagious No 04/25/25 20:23 Disease Does patient have nerve No 04/25/25 20:23 stimulator Patient instructed to have No 04/25/25 20:23 device shut off --Does patient have Pacemaker or ICD? When Was Last Pacemaker Check QUESTION #4 FULL TEXT: You/Your Family Experience fever (hyperthermia) with Anesthesia Last Oral Intake Last Oral intake: Last Oral Intake NPO since Meds taken in AM with sips of water? Meds patient instructed to take am of surgery Any additional information?: Yes NPO since: 03:30 (Patient water at 3:30 PM) Meds taken in AM with sips of water?: Yes Meds patient instructed to take am of surgery: Cyclobenzaprine, acetaminophen PONV PONV - cytogenetics technologist: PONV - cytogenetics technologist Female HX of Motion Sickness HX of N/V After Surgery Non-Smoker Duration of Surgery greater than 60 minutes Number of Risk Factors PONV Score Height & Weight Height & Weight: Anesthesia: Height & Weight Height 5 ft 2 in 04/25/25 20:23 Weight: 77.111 kg 04/25/25 20:23 Body Mass Index (BMI) 31.1 04/25/25 20:23 Respiratory Assessment Respiratory Assessment - cytogenetics technologist: Respiratory Tract Infection Hx - cytogenetics technologist Hx Respiratory Tract Infection No 04/25/25 20:23 STOP Sleep Apnea STOP Sleep Apnea - cytogenetics technologist: STOP Sleep Apnea - cytogenetics technologist Hx Hypertension Yes 04/25/25 20:23 Hx Sleep Apnea No 04/25/25 20:23 CPAP BIPAP Do you snore loudly (louder No 04/25/25 20:23 than talking or can be heard Do you often feel tired/ Yes 04/25/25 20:23 fatigued/ sleepy during daytime? Has anyone observed you stop No 04/25/25 20:23 breathing during sleep? STOP Results Positive 04/25/25 20:23 QUESTION #5 FULL TEXT : Do you snore loudly (louder than talking or can be heard through closed doors)? Tobacco Use History Tobacco Use History - cytogenetics technologist: Tobacco Use History - cytogenetics technologist Tobacco Use Smoking Status Never smoker 04/25/25 16:07 Hx Tobacco Use Years Smoking Packs Smoked per Day Smoking Cessation Date was within the last 15 years Hx Smoking Cessation Date Hx Smoking Cessation Counseling Hematologic Medial History Hematologic Hx - cytogenetics technologist: Hematologic Medical Hx - dishcloth folder Hx of Blood Transfusion Hx of Transfusion in last 3 Months Date of Last Transfusion (if within last 3 months) Ever experience any problems with transfusion(s)? Specify any problems Hx of Preganancy in last 3 Months Nurse Filling Out Transfusion & Questions: Date: Time: Patient unable to answer at this time (ie. confused, unrespo /Reproduction History /Reproductive History - cytogenetics technologist: /Reproductive Hx- cytogenetics technologist Hx Now No 04/25/25 20:23 Gestational Age (in weeks): EDC: Hx Hx Para Hx Section SAB No 04/25/25 20:23 PFS Medical History Thoracic outlet syndrome Acute pharyngitis, unspecified Contact with and (suspected) exposure to other viral communicable diseases URI (upper respiratory infection) Menstrual abnormality Elevated random blood glucose level Chronic neck pain Hernia History of nephrolithotomy with removal of calculi Kidney stones Hypertension Gastrointestinal problem Bone fracture Back problem Home Medications ?Medication ?Instructions ?Recorded ?Last Taken ?Type aleve PO PRN 05/18/22 Unknown Hist ory tylenol PO PRN pain 05/18/22 5 History lisinopril 10 mg tablet 10 mg PO DAILY #90 tabs 02/03 Unknown Rx diclofenac sodium 100 mg 100 mg PO QDAY 01/14/25 Unkn own History tablet,extended release 24 hr cyclobenzaprine 10 mg tablet 10 mg PO TID PRN 04/25/25 04/25/25 History Allergy/AdvReac Type Severity Reaction Status Date / Time gabapentin AdvReac Intermediate Nausea/Vom/ Verified 04/25/25 16:00 Diarrhea Family History Other Anxiety Depression Hypertension Myocardial infarction Surgical History History of neck surgery Previous back surgery H/O resection of rib Hx of breast reduction, elective Status post right foot surgery History of surgical procedure on mouth History of placement of ear tubes History of tonsillectomy H/O adenoidectomy Social History adopted: No household members: spouse housing: house current occupational status: unemployed history of recent travel: No sexually active: Yes Smoking Status: Never smoker alcohol intake: never substance use type: does not use what type of physical activity do you participate in: none sachi/holiness: Jain seatbelt use: always do you feel safe at home: Yes Review of Systems (Anesthesia) ROS Narrative System reviewed and no additional complaints, except as documented.
[2025-04-25] MEDS: 0.9% Normal Saline (1000mL) 400 ML IV (21:39)
[2025-04-25] MEDS: Lidocaine 1% (5 ml sdv) 5 ML Vial 3 ML IV (21:47)
--- NOTE | 2025-04-25 21:50 | APP_PTH ---
PATIENT: DARLENE HELMS LOC: MS3 U#:[id number] AGE/SX: 39/F ROOM: RI320 RE04/25/[address]: Dr. Eliseo Boudreaux MD : 1985 BED: 1 DIS: 04/26/2025 SPEC #: [id number] RECD: 04/26/25 10:10 STATUS: ERNESTO MOI #: [id number] BLAISE: 04/25/25 21:[address]: Eliseo Boudreaux DEPT: SURGICAL PATHOLOGY RECD BY: Hilario Frank ENTERED: 04/26/25 11:26 SP TYPE: APPENDIX OTHR DR: Naty Renee, [facility], DO Tissues: A - Appendix, NOS Procedures: Surgery Specimen Level III HEADER OPERATION: Laparoscopic appendectomy PRE-OP DIAGNOSIS: Acute onset right lower quadrant pain TISSUE SUBMITTED: A- Appendix MICROSCOPIC DIAGNOSIS A. Appendix, laparoscopic appendectomy: * Acute appendicitis, acute serositis. MICROSCOPIC DESCRIPTION Slides are reviewed. GROSS DESCRIPTION A. Received in formalin labeled with the patient's name and date of . Designated as appendix is a 6.7 x 0.9 cm patino-pink to burgess appendix with marked, serosal exudate and attached, somewhat shaggy mesoappendix. The stapled margin is inked black and shaved. Sectioning reveals patino-pink to red, somewhat fibrotic mucosa throughout. No mass lesions or fecaliths are grossly appreciated. Water Jet Loom Fixer sections are submitted in 2 cassettes as follows: A1: Distal tip, marginA2: Cross-sections CT 04/26/2025 CPT: 43608
--- NOTE | 2025-04-25 21:50 | APP_PTH ---
PATIENT: DARLENE HELMS LOC: MS3 U#:[id number] AGE/SX: 39/F ROOM: SD320 RE04/25/[address]: Dr. Eliseo Boudreaux MD : 1985 BED: 1 DIS: 04/26/2025 SPEC #: [id number] RECD: 04/26/25 10:10 STATUS: ERNESTO MOI #: [id number] BLAISE: 04/25/25 21:[address]: Eliseo Boudreaux DEPT: SURGICAL PATHOLOGY RECD BY: Hilario Frank ENTERED: 04/26/25 11:26 SP TYPE: APPENDIX OTHR DR: Naty Renee, [facility], DO Tissues: A - Appendix, NOS Procedures: Surgery Specimen Level III HEADER OPERATION: Laparoscopic appendectomy PRE-OP DIAGNOSIS: Acute onset right lower quadrant pain TISSUE SUBMITTED: A- Appendix MICROSCOPIC DIAGNOSIS A. Appendix, laparoscopic appendectomy: * Acute appendicitis, acute serositis. MICROSCOPIC DESCRIPTION Slides are reviewed. GROSS DESCRIPTION A. Received in formalin labeled with the patient's name and date of . Designated as appendix is a 6.7 x 0.9 cm patino-pink to burgess appendix with marked, serosal exudate and attached, somewhat shaggy mesoappendix. The stapled margin is inked black and shaved. Sectioning reveals patino-pink to red, somewhat fibrotic mucosa throughout. No mass lesions or fecaliths are grossly appreciated. Nuclear Medicine Technician sections are submitted in 2 cassettes as follows: A1: Distal tip, marginA2: Cross-sections NC 04/26/2025 CPT: 20722
[2025-04-25] MEDS: Bupiv/Epi 0.25% 30 ML Vial (22:40)
--- NOTE | 2025-04-25 22:47 | PCM.OPRPT ---
Procedures Digestive 40xxx-49xxx: [id number] Laparoscopy appendectomy Operative Report (Standard) Operative Information Date of Procedure: 04/25/25 Pre-Operative Diagnosis: Acute appendicitis Post-Operative Diagnosis: Acute uncomplicated appendicitis Surgery/Procedure Performed: Laparoscopic appendectomy hotel maintenance engineer: No Type of Anesthesia: General/Supplemental RN Documented Start/Stop Times: Operation Date: 04/25/25 21:50 Case Time Anesthesia Start 04/25/25 09:39 Into Room 04/25/25 09:39 Procedure Start 04/25/25 22:02 Procedure End 04/25/25 22:49 Anesthesia End 04/25/25 22:59 Out of Room 04/25/25 22:59 Into Recovery 04/25/25 23:02 Out of Recovery 04/25/25 23:37 Procedure Start Time: 22:02 Procedure Stop Time: 22:49 Select all DRAINS/GRAFTS/IMPLANTS that apply: None Estimated Blood Loss: 5 Specimen collected: Yes Description of specimen(s) removed: Appendix Description of surgery: After appropriate identification in the preoperative holding area, the patient was brought to the operating room and placed supine on the operating room table. Antibiotics had been preoperatively administered by emergency medicine. Patient was then induced with general endotracheal anesthetic. The abdomen was prepped and draped in usual sterile fashion. Formal timeout was conducted to confirm both the patient and the procedure. A supraumbilical incision was made (taking into account the patient's prior umbilical piercing and prior umbilical mesh) and carried down to the level of the fascia which was sharply opened. After opening the peritoneum in like fashion a finger sweep was made to confirm position, and a balloon trocar was placed and pneumoperitoneum was established to 15 mmHg. Patient was positioned in Trendelenburg with the left side down. 2 additional 5 mm trocars were placed in the left lower quadrant and suprapubic positions. The peritoneum was inspected and there are no signs of inadvertent injury from this Vargas entry. The appendix was visualized with significant inflammatory change causing adherence to the adjacent cecum. Using blunt laparoscopic dissection, the appendix was from these nearby structures and a window was made in the mesoappendix adjacent to the appendiceal base. The mesoappendix was divided with application of a laparoscopic harmonic. Then the base of the appendix was sealed and amputated with the use of an Endo RAFITA stapler. The appendix was placed in an Endo Catch bag. The staple line was inspected for hemostasis where there was a slight ooze from the staple line initially so a Ray-Jeanine was inserted and manual pressure was held over the staple line for a total period of 3 minutes. After hemostasis was confirmed the ascitic fluid adjacent the appendix and overlying the uterus were both suctioned free of the peritoneal cavity. The appendix was removed from the umbilical port site and pneumoperitoneum was then evacuated. The supraumbilical port site fascia was closed with #1 Vicryl in a [id number] fashion. The port sites were infiltrated with 24 mL local anesthetic. The skin of each port site was closed with 4-0 Monocryl in a subcuticular fashion. Steri-Strips and OpSite dressings were applied. Patient tolerated procedure well without any apparent complications. They were awoken from general anesthetic without issue and transferred to post anesthesia care unit for ongoing recovery. Surgical Findings: ? Acutely inflamed appendix with adjacent turbid ascites but no evidence of perforation Complications Complications: No Admit VTE Documentation VTE Mechan Device Prophylaxis: SCD's
[2025-04-25] MEDS: fentaNYL 100 MCG/2 ML Ampul IV (23:00)
--- NOTE | 2025-04-25 23:02 | PCM.POST.ANE ---
Anesthesia: Postop Eval I Current Vital Signs Temperature: 97.6 F Pulse Rate: 97 Blood Pressure: 115/69 Respiratory Rate: 16 Pulse Ox: 100 Oxygen Delivery Method: Room Air Assessment Airway patent: Yes Spontaneous unlabored respirations: Yes Mental status: Awake (Sleepy) and Calm nausea: No Vomiting: No Anesthesia Complication: No Fluid Hydration Crystalloid volume administer (ml): 400 Total IV fluid infused: 400 Progress Note Anesthesia document: Postop Eval 1 completed: Yes
--- NOTE | 2025-04-25 23:19 | PCM.POSTANE2 ---
Anesthesia Postop Eval I Sum Postop Eval Completion status Anesthesia document: Postop Eval 1 completed: Yes Anesthesia Postop Eval I Summary Anesthesia Postop Eval I Summary: Anesthesia Postop Eval I: Assessment Summary Airway patent Yes 04/25/25 23:07 Spontaneous unlabored Yes 04/25/25 23:07 respirations Mental status Awake - Sleepy, 04/25/25 23:07 Calm nausea No 04/25/25 23:07 Vomiting No 04/25/25 23:07 Anesthesia Postop Eval I: Fluid Summary Crystalloid volume administer 400 04/25/25 23:07 (ml) Colloids volume administered ( ml) Blood Product volume administered (ml) Total IV fluid infused 400 04/25/25 23:07 Anesthesia Postop Eval I: Summary Notes Anesthesia Complication No 04/25/25 23:07 Anesthesia Complication Comment: Post-operative progress note Anesthesia: Postop Eval II Evaluation Mental status: Awake and Calm Pain Level: 2 nausea: No Vomiting: No Complications Anesthesia Complication: No
[2025-04-26 02:00] VITALS: BP 112/73; PULSE 78; RESP 16; TEMP 36.6; O2SAT 95
[2025-04-26] MEDS: Piperacil/Tazobactam 3.375 GM in 0.9% Normal Saline (50mL MB+) 50 ML IV (04:47)
[2025-04-26] MEDS: 0.9% Normal Saline (1000mL) 1,000 ML 50 ML IV (04:47)
[2025-04-26 04:58] VITALS: BP 111/67; PULSE 64; RESP 16; TEMP 36.1; O2SAT 95
[2025-04-26 07:11] LABS: Hematocrit 37.3 % (37-47); Hemoglobin 12.5 g/dL (12.0-15.0); Immature Granulocytes Count 0.030 X10^3/uL (0.0-0.0); Mean Corp Hgb Conc 33.5 g/dL (32-36); Mean Corpuscular Volume 96.1 fL (81-99); Mean Platelet Vol. 10.8 fl (6.2-12.0); NRBC Flagged by Analyzer 0 % (0-5); Platelet Count 256 K/mm3 (150-450); RBC Distribution Width CV 12.8 % (11.6-14.6); RBC Distribution Width SD 45.4 fl (35.1-43.9); Red Blood Count 3.88 M/mm3 (4.2-5.4); White Blood Count 7.9 K/mm3 (4.4-11.0)
[2025-04-26 07:44] LABS: Anion Gap 10 (5-15); BUN 12 mg/dL (4-19); BUN/Creat Ratio 14.8 RATIO (10-20); Calcium,Total 8.1 mg/dL (7.6-11.0); Carbon Dioxide 22.0 mmol/L (21.0-32.0); Chloride 107 mmol/L (98-108); Estimated Creatinine Clearance 88.79 ml/min (50-250); Glucose 157 mg/dL (70-99); Potassium 4.3 mmol/L (3.3-5.1)
--- NOTE | 2025-04-26 08:27 | PCM.PN.SRG ---
Subjective Subjective Patient evaluated resting comfortably in bed. She notes right lower quadrant pain. She denies any nausea, vomiting. She is tolerating clear liquid diet. Objective Data Objective Data Vital Signs: Vital Signs Temp Pulse Resp BP Pulse Ox O2 Del Method 97 F L 64 16 111/67 95 Room Air 04/26/25 04:58 04/26/25 04:58 04/26/25 04:58 04/26/25 04:58 04/26/25 04:58 04/26/25 04:58 Oxygen Delivery Method Room Air Weight: 182 lb 8.684 oz Body Mass Index (BMI) 33.3 Intake & Output: Intake and Output for Last 24 Hours 04/24/25 04/25/25 04/26/25 23:59 23:59 23:59 Intake Total 1100 / 1100 Output Total 2 / 2 Balance 1098 / 1098 Lab / Micro Data 04/26/25 06:48 04/26/25 06:48 Labs: Laboratory Results - last 24 hr 04/25/25 16:15: WBC 10.8, RBC 4.24, Hgb 13.5, Hct 40.7, MCV 96.0, MCH 31.8, MCHC 33.2, RDW Std Deviation 44.6 H, RDW Coeff of Jeff 12.6, Plt Count 273, MPV 10.9, Immature Gran % (Auto) 0.400, Neut % (Auto) 71.7 H, Lymph % (Auto) 15.8 L, [place] % (Auto) 10.5 H, Eos % (Auto) 1.3, Baso % (Auto) 0.3, Absolute Neuts (auto) 7.8 H, Absolute Lymphs (auto) 1.71, Nucleated RBC % 0, Sodium 139, Potassium 4.0, Chloride 105, Carbon Dioxide 23.1, Anion Gap 11, BUN 14, Creatinine 0.81, Estim Creat Clear Calc 88.77, Est GFR (MDRD) Non-Af 94, BUN/Creatinine Ratio 17.3, Glucose 98, Calcium 9.0, Total Bilirubin 0.35, AST 29, ALT 22, Alkaline Phosphatase 63, Total Protein 7.0, Albumin 4.2, Globulin 2.8, Albumin/Globulin Ratio 1.5, Lipase 28, Serum , Qual NEGATIVE 04/25/25 16:45: Urine Color Yellow, Urine Clarity Clear, Urine pH 7.0, Ur Specific [place] 1.005, Urine Protein Negative, Urine Glucose (UA) Normal, Urine Ketones Negative, Urine Occult Blood Negative, Urine Nitrite Negative, Urine Bilirubin Negative, Urine Urobilinogen Normal, Ur Leukocyte Esterase 100 H, Urine RBC 0 SEEN, Urine WBC 0-5 SEEN, Ur Squamous Epith Cells 0-5 SEEN, Urine Bacteria RARE, Urine Mucus 0 SEEN 04/26/25 06:48: WBC 7.9, RBC 3.88 L, Hgb 12.5, Hct 37.3, MCV 96.1, MCH 32.2 H, MCHC 33.5, RDW Std Deviation 45.4 H, RDW Coeff of Jeff 12.8, Plt Count 256, MPV 10.8, Immature Gran % (Auto) 0.400, Neut % (Auto) 90.5 H, Lymph % (Auto) 7.7 L, [place] % (Auto) 1.4, Eos % (Auto) 0.0, Baso % (Auto) 0.0, Absolute Neuts (auto) 7.2, Absolute Lymphs (auto) 0.61 L, Nucleated RBC % 0, Sodium 138, Potassium 4.3, Chloride 107, Carbon Dioxide 22.0, Anion Gap 10, BUN 12, Creatinine 0.84, Estim Creat Clear Calc 88.79, Est GFR (MDRD) Non-Af 91, BUN/Creatinine Ratio 14.8, Glucose 157 H, Calcium 8.1 Radiography Diagnostic Testing: Radiology Impression Abdomen/Pelvis CT 04/25/25 18:52 IMPRESSION: 1. Mucosal thickening in the appendix with surrounding inflammation. Appendix measures 1.0 cm in diameter. Findings are consistent with acute appendicitis. No rupture. 2. Hepatomegaly with fatty infiltration. 3. Fecal retention in the colon consistent with constipation. 4. Bilateral nephrolithiasis without hydronephrosis. Red Alert: Acute appendicitis The critical findings in the findings and impression above were relayed directly by me by telephone to Major Martin on 04/25/2025 at 7:30 pm with readback verification. Reading Location: [facility] Physical Exam GI GI Narrative: Abdomen- soft, pain with palpation of the right lower quadrant. Incisions c/d/i. No erythema or infection noted. Assessment & Plan Assessment/Plan (1) Right lower quadrant abdominal pain: (2) Acute appendicitis: PLAN: Plan I am following this patient in conjunction with Dr. Boudreaux. He has independently evaluated this patient. Labs reviewed Increase diet Discharge criteria met from surgical standpoint Likely discharge around noon Charges/Coding Visit Charges Inpatient E&M: 56886 Subs Hosp L1 (no charge; post-op)
--- NOTE | 2025-04-26 08:27 | PCM.PN.SRG ---
Subjective Subjective Patient evaluated resting comfortably in bed. She notes right lower quadrant pain. She denies any nausea, vomiting. She is tolerating clear liquid diet. Objective Data Objective Data Vital Signs: Vital Signs Temp Pulse Resp BP Pulse Ox O2 Del Method 97 F L 64 16 111/67 95 Room Air 04/26/25 04:58 04/26/25 04:58 04/26/25 04:58 04/26/25 04:58 04/26/25 04:58 04/26/25 04:58 Oxygen Delivery Method Room Air Weight: 182 lb 8.684 oz Body Mass Index (BMI) 33.3 Intake & Output: Intake and Output for Last 24 Hours 04/24/25 04/25/25 04/26/25 23:59 23:59 23:59 Intake Total 1100 / 1100 Output Total 2 / 2 Balance 1098 / 1098 Lab / Micro Data 04/26/25 06:48 04/26/25 06:48 Labs: Laboratory Results - last 24 hr 04/25/25 16:15: WBC 10.8, RBC 4.24, Hgb 13.5, Hct 40.7, MCV 96.0, MCH 31.8, MCHC 33.2, RDW Std Deviation 44.6 H, RDW Coeff of Jeff 12.6, Plt Count 273, MPV 10.9, Immature Gran % (Auto) 0.400, Neut % (Auto) 71.7 H, Lymph % (Auto) 15.8 L, [place] % (Auto) 10.5 H, Eos % (Auto) 1.3, Baso % (Auto) 0.3, Absolute Neuts (auto) 7.8 H, Absolute Lymphs (auto) 1.71, Nucleated RBC % 0, Sodium 139, Potassium 4.0, Chloride 105, Carbon Dioxide 23.1, Anion Gap 11, BUN 14, Creatinine 0.81, Estim Creat Clear Calc 88.77, Est GFR (MDRD) Non-Af 94, BUN/Creatinine Ratio 17.3, Glucose 98, Calcium 9.0, Total Bilirubin 0.35, AST 29, ALT 22, Alkaline Phosphatase 63, Total Protein 7.0, Albumin 4.2, Globulin 2.8, Albumin/Globulin Ratio 1.5, Lipase 28, Serum , Qual NEGATIVE 04/25/25 16:45: Urine Color Yellow, Urine Clarity Clear, Urine pH 7.0, Ur Specific [place] 1.005, Urine Protein Negative, Urine Glucose (UA) Normal, Urine Ketones Negative, Urine Occult Blood Negative, Urine Nitrite Negative, Urine Bilirubin Negative, Urine Urobilinogen Normal, Ur Leukocyte Esterase 100 H, Urine RBC 0 SEEN, Urine WBC 0-5 SEEN, Ur Squamous Epith Cells 0-5 SEEN, Urine Bacteria RARE, Urine Mucus 0 SEEN 04/26/25 06:48: WBC 7.9, RBC 3.88 L, Hgb 12.5, Hct 37.3, MCV 96.1, MCH 32.2 H, MCHC 33.5, RDW Std Deviation 45.4 H, RDW Coeff of Jeff 12.8, Plt Count 256, MPV 10.8, Immature Gran % (Auto) 0.400, Neut % (Auto) 90.5 H, Lymph % (Auto) 7.7 L, [place] % (Auto) 1.4, Eos % (Auto) 0.0, Baso % (Auto) 0.0, Absolute Neuts (auto) 7.2, Absolute Lymphs (auto) 0.61 L, Nucleated RBC % 0, Sodium 138, Potassium 4.3, Chloride 107, Carbon Dioxide 22.0, Anion Gap 10, BUN 12, Creatinine 0.84, Estim Creat Clear Calc 88.79, Est GFR (MDRD) Non-Af 91, BUN/Creatinine Ratio 14.8, Glucose 157 H, Calcium 8.1 Radiography Diagnostic Testing: Radiology Impression Abdomen/Pelvis CT 04/25/25 18:52 IMPRESSION: 1. Mucosal thickening in the appendix with surrounding inflammation. Appendix measures 1.0 cm in diameter. Findings are consistent with acute appendicitis. No rupture. 2. Hepatomegaly with fatty infiltration. 3. Fecal retention in the colon consistent with constipation. 4. Bilateral nephrolithiasis without hydronephrosis. Red Alert: Acute appendicitis The critical findings in the findings and impression above were relayed directly by me by telephone to Major Martin on 04/25/2025 at 7:30 pm with readback verification. Reading Location: [facility] Physical Exam GI GI Narrative: Abdomen- soft, pain with palpation of the right lower quadrant. Incisions c/d/i. No erythema or infection noted. Assessment & Plan Assessment/Plan (1) Right lower quadrant abdominal pain: (2) Acute appendicitis: PLAN: Plan I am following this patient in conjunction with Dr. Boudreaux. He has independently evaluated this patient. Labs reviewed Increase diet Discharge criteria met from surgical standpoint Likely discharge around noon Charges/Coding Visit Charges Inpatient E&M: 96408 Subs Hosp L1 (no charge; post-op)
[2025-04-26 08:36] VITALS: BP 100/57; PULSE 64; RESP 16; TEMP 36.6; O2SAT 94
--- NOTE | 2025-04-26 11:50 | PCM.DC ---
Discharge Instructions DC O2, CPAP, BIPAP needs Home O2 Discharge instructions: No Dressing / Incision Discharge Activity: May Not Drive (3-5 days or while taking narcotic pain medications) and May Shower (2 days) Lifting Restrictions: 15 pounds for 2 weeks Dressing / Incision Call your doctor if your incision/area has: Continuous Slow Oozing, Sudden Increased Bleeding, Increased Pain/ Swelling, Increased Redness, Foul Smelling Discharge and Swelling at the incision site Call your doctor if you observe: Fever of 101 or Higher Suture Line Care: Avoid Pulling/Pushing and Avoid Pinching/Bending Remove Dressing in: 2 days Cleanse incision/area with: Soap & Water Follow Up Care Please Follow Up With: Karin Trejo PA-C When: Please contact our office at [phone], option #2 to schedule a follow-up appointment for 10-14 days Test Results: Test results from this visit will be discussed in further detail at your follow-up appointment, if applicable. Discharge Plan Admission Admit Date/Time: 04/25/25 22:50 Primary Reason for Your Visit: Acute appendicitis Attending Provider: Eliseo Boudreaux Primary Care Provider: Naty Renee [facility] Instructions Additional Instructions / Restrictions: Appendectomy Diet ? Start light with soups and soft bland foods. You may advance diet as tolerated. Activity ? You may drive in 3-5 days but not while taking narcotic pain medication. ? I encourage walking. You may go up steps, one at a time. ? Do not swim or use hot tubs for 2 weeks. ? For comfort, you may use warm compresses or ice as needed for 15-20 minutes at a time. Lifting ? You may lift up to 15 pounds for 2 weeks. Dressings/Incision ? You may shower OVER your plastic dressings starting tomorrow ? Do NOT tub bathe for 1 week ? Leave plastic dressings on for 2 days. ? When plastic dressings are removed, you will find steri-strips. It is okay to continue showering with them in place, pat them dry. ? You may remove steri-strips after 1 week. We recommend getting them soaking wet for easier removal. Medications ? Anesthesia used during surgery and pain medications may cause constipation. I recommend initiating on the day of surgery a fiber supplement like, Metamucil, Citrucel, FiberCon, Benefiber, or a generic form of these medications. 1 heaping tablespoon in water daily. You may continue to utilize any bowel regimen or oral laxatives that you routinely take. ? As long as you are not intolerant to Tylenol, acetaminophen, ibuprofen, Motrin, Advil, Aleve, or similar medications, I would recommend transitioning to these [id number] medicines as soon as possible instead of continued use of narcotic pain medication. Follow up ? You should call [facility] soon after surgery, at [phone] option 2 to make a follow up appointment for 10-14 days after your surgery. Discharge Orders/Prescriptions Prescriptions: New acetaminophen 325 mg Tablet 650 mg PO Q6H PRN PRN (Reason: Pain 1-10 Or Fever) Qty: 0 0RF ibuprofen 400 mg Tablet 400 mg PO Q6 Qty: 0 0RF oxycodone 5 mg Tablet 5 mg PO Q6H PRN PRN (Reason: Pain Score 6-10) 3 Days Qty: 10 0RF Continued aleve PO PRN tylenol PO PRN (Reason: pain) diclofenac sodium 100 mg tablet extended release 24 hr 100 mg PO QDAY cyclobenzaprine 10 mg tablet 10 mg PO TID PRN lisinopril 10 mg tablet 10 mg PO DAILY Qty: 90 1RF Referrals / Follow Up: Karin Trejo PA-C [Med Staff - [facility] Practice Prof, Surgery] - 05/05/25 Naty Renee DO [Primary Care Provider, Family Practice] Disposition Disposition (needs filled in before D/C Order can be placed): Home, Self Care
--- NOTE | 2025-04-26 11:50 | PCM.DC ---
Discharge Instructions DC O2, CPAP, BIPAP needs Home O2 Discharge instructions: No Dressing / Incision Discharge Activity: May Not Drive (3-5 days or while taking narcotic pain medications) and May Shower (2 days) Lifting Restrictions: 15 pounds for 2 weeks Dressing / Incision Call your doctor if your incision/area has: Continuous Slow Oozing, Sudden Increased Bleeding, Increased Pain/ Swelling, Increased Redness, Foul Smelling Discharge and Swelling at the incision site Call your doctor if you observe: Fever of 101 or Higher Suture Line Care: Avoid Pulling/Pushing and Avoid Pinching/Bending Remove Dressing in: 2 days Cleanse incision/area with: Soap & Water Follow Up Care Please Follow Up With: Karin Trejo PA-C When: Please contact our office at [phone], option #2 to schedule a follow-up appointment for 10-14 days Test Results: Test results from this visit will be discussed in further detail at your follow-up appointment, if applicable. Discharge Plan Admission Admit Date/Time: 04/25/25 22:50 Primary Reason for Your Visit: Acute appendicitis Attending Provider: Eliseo Boudreaux Primary Care Provider: Naty Renee [facility] Instructions Additional Instructions / Restrictions: Appendectomy Diet ? Start light with soups and soft bland foods. You may advance diet as tolerated. Activity ? You may drive in 3-5 days but not while taking narcotic pain medication. ? I encourage walking. You may go up steps, one at a time. ? Do not swim or use hot tubs for 2 weeks. ? For comfort, you may use warm compresses or ice as needed for 15-20 minutes at a time. Lifting ? You may lift up to 15 pounds for 2 weeks. Dressings/Incision ? You may shower OVER your plastic dressings starting tomorrow ? Do NOT tub bathe for 1 week ? Leave plastic dressings on for 2 days. ? When plastic dressings are removed, you will find steri-strips. It is okay to continue showering with them in place, pat them dry. ? You may remove steri-strips after 1 week. We recommend getting them soaking wet for easier removal. Medications ? Anesthesia used during surgery and pain medications may cause constipation. I recommend initiating on the day of surgery a fiber supplement like, Metamucil, Citrucel, FiberCon, Benefiber, or a generic form of these medications. 1 heaping tablespoon in water daily. You may continue to utilize any bowel regimen or oral laxatives that you routinely take. ? As long as you are not intolerant to Tylenol, acetaminophen, ibuprofen, Motrin, Advil, Aleve, or similar medications, I would recommend transitioning to these [id number] medicines as soon as possible instead of continued use of narcotic pain medication. Follow up ? You should call [facility] soon after surgery, at [phone] option 2 to make a follow up appointment for 10-14 days after your surgery. Discharge Orders/Prescriptions Prescriptions: New acetaminophen 325 mg Tablet 650 mg PO Q6H PRN PRN (Reason: Pain 1-10 Or Fever) Qty: 0 0RF ibuprofen 400 mg Tablet 400 mg PO Q6 Qty: 0 0RF oxycodone 5 mg Tablet 5 mg PO Q6H PRN PRN (Reason: Pain Score 6-10) 3 Days Qty: 10 0RF Continued aleve PO PRN tylenol PO PRN (Reason: pain) diclofenac sodium 100 mg tablet extended release 24 hr 100 mg PO QDAY cyclobenzaprine 10 mg tablet 10 mg PO TID PRN lisinopril 10 mg tablet 10 mg PO DAILY Qty: 90 1RF Referrals / Follow Up: Karin Trejo PA-C [Med Staff - [facility] Practice Prof, Surgery] - 05/05/25 Naty Renee DO [Primary Care Provider, Family Practice] Disposition Disposition (needs filled in before D/C Order can be placed): Home, Self Care
[2025-04-26 13:08] VITALS: BP 121/74; PULSE 71; RESP 16; TEMP 36.7; O2SAT 99
--- NOTE | 2025-04-26 13:21 | PHA.DC.MC.R ---
Pharmacy [facility] Counseling Pharmacy Service has performed discharge medication reconciliation and counseling for this patient. Pt talked to doctor, will not be taking ibuprofen scheduled as she takes diclofenac, will be taking a small dose of naproxen. 1. OXYCODONE 5MG PO Q6H PRN PAIN The patient's discharge medication list was reviewed for discrepancies and discrepancies were resolved. The patient was counseled on the following discharge medications and changes in medications for homegoing were reviewed. The Reason for Use, instructions for use, and potential side effects were reviewed for all new medications. The patient's questions regarding all of their medications were answered. The patient was able to verbally demonstrate an understanding of their discharge medications. Medications at Discharge Home Medications aleve PO PRN 05/18/22 tylenol PO PRN pain 05/18/22 lisinopril 10 mg tablet 10 mg PO DAILY #90 tabs 05/21/23 diclofenac sodium 100 mg tablet,extended release 24 hr 100 mg PO QDAY 01/14/25 cyclobenzaprine 10 mg tablet 10 mg PO TID PRN 04/25/25 acetaminophen 325 mg tablet 650 mg (2 x 325 mg) PO Q6H PRN PRN Pain 1-10 Or Fever #0 tabs 04/26/25 ibuprofen 400 mg tablet 400 mg PO Q6 #0 tabs 04/26/25 oxycodone 5 mg tablet 5 mg PO Q6H PRN PRN Pain Score 6-10 3 days #10 tabs 04/26/25
== END 2025-04-26 13:26 | disposition home or self-care (01) ==
LOC: ED 20:34 → SDC 21:15 → MS3 21:16 → SDC 22:55 → MS3 22:55
PROVIDERS: Admitting Provider Surgery; Emergency Provider Emergency Medicine; PCP Family Medicine; Visit Provider Surgery
PROC: 0DTJ4ZZ Resection of Appendix, Percutaneous Endoscopic Approach (ICD-10-PCS; CPT 44970; principal; 2025-04-25 21:30)
DX: K35.80 Unspecified acute appendicitis (principal); I10 Essential (primary) hypertension; Z79.899 Other long term (current) drug therapy
CPT/HCPCS: 44970; 00840; 36415; 74177; 80048; 80053; 81001; 83690; 84703; 85025; 88304; 94668; 96365; 96366; 96375; 99221; 99252; 99283; Q9967; A4216; G0378; G0463; J2405